=== PATIENT | male | born 1945 | race African-American/Black ===

== ENCOUNTER 2017-12-06 16:11 | Emergency (ER) | payer MEDICARE, MEDICAID ==
[2017-12-06 17:11] LABS: Bilirubin Negative (Negative); Blood, Urine Moderate (Negative); Clarity TURBID (Clear); Glucose, Urine (Dipstick) Negative (Negative); Leukocyte Large (Negative); Nitrite Negative (Negative); Protein, Urine (Dipstick) 30 mg/dL (Neg-Trace); Specific Gravity, Urine 1.009 (1.002-1.036); Urobilinogen 0.2 mg/dL (0.2-1.0)
[2017-12-06 17:13] LABS: Bacteria/HPF 1+ HPF (None Seen); Hyaline Casts/LPF 0-3 HYALINE CAST LPF (0-3 Hyaline); RBC/HPF 0-3 HPF (0-3); Squamous Epithelial None Seen HPF (0-3)
[2017-12-06 17:16] LABS: Yeast-AUWi Flag 679.9 (0-25.0)
[2017-12-06 17:24] LABS: Yeast-All Forms None Seen HPF (None Seen)
== END 2017-12-06 17:49 | disposition home or self-care (01) ==
LOC: ERS 16:11
DX: N39.0 Urinary tract infection, site not specified (principal)
CPT/HCPCS: 36416; 81003; 81015; 87077; 87086; 87186; 99283

== ENCOUNTER 2017-12-12 14:54 | Emergency (ER) | payer MEDICARE, MEDICAID ==
[2017-12-12] MEDS ORDERED: Lidocaine 1% (PF) 30 ML VIAL ONE (16:41)
[2017-12-12] MEDS ORDERED: cefTRIAXone\\ROCEPHIN 500 MG VIAL ONE (16:41)
== END 2017-12-12 17:18 | disposition home or self-care (01) ==
LOC: ERS 14:54
DX: N39.0 Urinary tract infection, site not specified (principal)
CPT/HCPCS: 96372; J0696; J2001

== ENCOUNTER 2018-04-09 14:04 | Inpatient (IN) | payer MEDICARE, MEDICAID ==
[2018-04-09 14:35] LABS: Bilirubin Negative (Negative); Blood, Urine Moderate (Negative); Clarity TURBID (Clear); Glucose, Urine (Dipstick) Negative (Negative); Leukocyte Large (Negative); Nitrite Negative (Negative); Protein, Urine (Dipstick) 30 mg/dL (Neg-Trace); Specific Gravity, Urine 1.011 (1.002-1.036); Urobilinogen 0.2 mg/dL (0.2-1.0)
[2018-04-09 14:37] LABS: Bacteria/HPF 1+ HPF (None Seen); Hyaline Casts/LPF 0-3 HYALINE CAST LPF (0-3 Hyaline); Squamous Epithelial None Seen HPF (0-3)
[2018-04-09 14:46] LABS: Yeast-AUWi Flag 52.6 (0-25.0)
[2018-04-09 14:59] LABS: Yeast-All Forms None Seen HPF (None Seen)
[2018-04-09 15:07] LABS: #Eosinphils 0.4 thou/uL (0.0-0.7); #Monocytes 0.8 thou/uL (0.11-0.59); #Neutrophils 11.4 thou/uL (1.40-6.50); %Basophils 0.1 % (0.0-1.0); %Eosinophils 2.7 % (0.0-10.0); %Lymphocytes 7.1 % (21.0-51.0); %Monocytes 5.9 % (0.0-10.0); %Neutrophils 84.2 % (42.0-75.0); Hemoglobin 11.8 g/dL (14.0-18.0); Mean Corpuscular HGB CONC 32.7 g/dL (32.0-36.0); Mean Corpuscular Hemoglobin 30.1 pg (27.0-31.0); Mean Corpuscular Volume 92.1 fl (80.0-94.0); Mean Platelet Volume 7.4 fL (7.4-10.4); Platelet Count 365 thou/uL (130-400); RBC Distribution Width 14.5 % (11.5-14.5); White Blood Cell (WBC) Count 13.5 thou/uL (4.8-10.8)
[2018-04-09 15:29] LABS: ALT (SGPT) 12 U/L (8-55); AST (SGOT) 13 U/L (5-34); Albumin 4.2 g/dL (3.4-4.8); Alkaline Phosphatase 96 U/L (40-150); Anion Gap 14 mmol/L (10-20); BUN (Urea Nitrogen) 66 mg/dL (8.4-25.7); Bilirubin, Total 0.3 mg/dL (0.2-1.2); Calc. Creatinine Clearance 0 mL/min (70-130); Carbon Dioxide 17 mmol/L (23-31); Chloride 113 mmol/L (98-107); Estimated GFR-MDRD 17; Globulin 3.8 g/dL (2.4-3.5); Glucose 118 mg/dL (80-115); Sodium 139 mmol/L (136-145)
[2018-04-09] MEDS ORDERED: cefTRIAXone\\ROCEPHIN 1 GM VIAL ONE (16:18)
[2018-04-09] MEDS ORDERED: Sodium Chloride 0.9% 100 ML ONE (16:19)
[2018-04-09] MEDS ORDERED: Ondansetron ODT 4 MG TAB ONE (16:33)
[2018-04-09] MEDS ORDERED: Ondansetron ODT 4 MG TAB SL PRN (19:02)
[2018-04-09] MEDS ORDERED: Ondansetron HCl/PF 4 MG/2 ML Vial IVP PRN (19:02)
[2018-04-09] MEDS ORDERED: Acetaminophen 325 MG TAB PO PRN (19:02)
[2018-04-09] MEDS: Sodium Chloride 0.9% 1,000 ML IV SCH (20:52)
[2018-04-09] MEDS ORDERED: cefTRIAXone\\ROCEPHIN 1 GM in Sodium Chloride 0.9% 100 ML IVPB SCH (22:00)
[2018-04-09 23:14] VITALS: BMI 26.6
[2018-04-10] MEDS: Sodium Chloride 0.9% 1,000 ML IV SCH (03:00)
[2018-04-10 04:26] LABS: #Eosinphils 0.8 thou/uL (0.0-0.7); #Lymphocytes 1.3 thou/uL (1.20-3.40); #Monocytes 0.8 thou/uL (0.11-0.59); #Neutrophils 7.2 thou/uL (1.40-6.50); %Basophils 0.1 % (0.0-1.0); %Eosinophils 7.9 % (0.0-10.0); %Lymphocytes 12.5 % (21.0-51.0); %Monocytes 7.5 % (0.0-10.0); Hemoglobin 9.8 g/dL (14.0-18.0); Mean Corpuscular HGB CONC 32.4 g/dL (32.0-36.0); Mean Corpuscular Hemoglobin 29.9 pg (27.0-31.0); Mean Corpuscular Volume 92.2 fL (78.0-98.0); Mean Platelet Volume 7.4 fL (7.4-10.4); Platelet Count 311 thou/uL (130-400); RBC Distribution Width 14.5 % (11.5-14.5); Red Blood Cell (RBC) Count 3.28 mill/uL (4.70-6.10)
[2018-04-10 04:52] LABS: Anion Gap 14 mmol/L (10-20); BUN (Urea Nitrogen) 58 mg/dL (8.4-25.7); Calc. Creatinine Clearance 20 mL/min (70-130); Calcium 7.4 mg/dL (7.8-10.44); Carbon Dioxide 19 mmol/L (23-31); Chloride 113 mmol/L (98-107); Estimated GFR-MDRD 20; Glucose 125 mg/dL (80-115); Potassium 4.8 mmol/L (3.5-5.1); Sodium 141 mmol/L (136-145)
[2018-04-10] MEDS ORDERED: Chloraseptic Spray 180 ml Bottle PO PRN (07:02)
[2018-04-10] MEDS ORDERED: Sodium Chloride 0.65% Nasal 44 ML BOT EA NARE PRN (07:02)
[2018-04-10] MEDS ORDERED: Eucerin (Mineral Oil/Petrolatum,White) 30 gm Jar TOP PRN (07:02)
[2018-04-10] MEDS ORDERED: Ondansetron ODT 4 MG TAB PO PRN (07:02)
[2018-04-10] MEDS ORDERED: HYDROcodone/Acetaminophen 5/325 mg Tablet PO PRN (07:02)
[2018-04-10] MEDS ORDERED: Artificial Tears 18 DROP/0.9 ML EA EYE PRN (07:02)
[2018-04-10] MEDS ORDERED: Loperamide HCl 2 MG CAP PO PRN (07:02)
[2018-04-10] MEDS ORDERED: Labetalol HCl 100 MG/20 ML VIAL SLOW IVP PRN (07:02)
[2018-04-10] MEDS ORDERED: Loratadine 10 MG TAB PO PRN (07:02)
[2018-04-10] MEDS ORDERED: Bisacodyl 10 MG SUPP PR PRN (07:02)
[2018-04-10] MEDS ORDERED: Milk Of Magnesia 30 ML UDCUP PO PRN (07:02)
[2018-04-10] MEDS ORDERED: Diabetic Tussin 200 MG/10 ML UDCUP PO PRN (07:02)
[2018-04-10] MEDS ORDERED: hydrALAZINE 20 MG/ML VIAL SLOW IVP PRN (07:02)
[2018-04-10] MEDS ORDERED: Senokot 8.6 MG TAB PO PRN (07:02)
[2018-04-10] MEDS ORDERED: Zolpidem Tartrate 5 MG TAB PO PRN (07:02)
[2018-04-10] MEDS ORDERED: Mag-Al 1200 mg/1200 mg/30 ML UDCUP PO PRN (07:02)
--- NOTE | 2018-04-10 07:53 | HP ---
PRIMARY CARE DOCTOR: . CODE STATUS: FULL CODE. CHIEF COMPLAINT: Lower abdominal pain. HISTORY OF PRESENT ILLNESS: This is a 72-year-old male patient with past medical history of enlarged prostate, came to the hospital after having lower abdominal pain, reported severe, onset yesterday. The patient had a Becerra catheter removed by cystoscopy and biopsy yesterday. He reported that he had the procedure at [facility]. The patient reported he has been unable to urinate in the same way since the Becerra was removed. He was also reporting associated spasms. He rates the pain at 5/10, gradual onset of symptoms,no clear triggers , only alleviated by medical treatment. REVIEW OF SYSTEMS: Constitutional: No fever, no chills, generalized weakness. Respiratory: No cough, no sputum production, no shortness of breath. Cardiovascular: No chest pain, no palpitations, no shortness of breath. Gastrointestinal: No nausea, no vomiting, no diarrhea, no abdominal pain. Central Nervous System: No dizziness, headache, not feeling lightheaded. Genitourinary: The patient reported burning on urination and inability to urinate. Extremities: No swelling. All other systems reviewed were negative except for the findings mentioned in the HPI. PAST MEDICAL HISTORY: The patient has a history of prostate enlargement. PAST SURGICAL HISTORY: No surgical history. PSYCHIATRIC HISTORY: No previous psychiatric history. SOCIAL HISTORY: The patient is an everyday smoker. No alcohol, no drugs. FAMILY HISTORY: Mother had lung cancer. Father unknown. ALLERGIES: No known drug allergies. HOME MEDICATIONS: The patient takes amlodipine 5 mg daily, ferrous gluconate 325 mg 3 times a day, hydralazine 25 mg orally once a day, Kayexalate 15 g once a day, tamsulosin 0.4 mg once a day, Uribel 118 mg-10 mg-40.8 mg-36 mg-0.12 mg orally. PHYSICAL EXAMINATION: VITAL SIGNS: On presentation, blood pressure 178/ 68, respiratory rate was 16, temperature 98. Pain was 5/10, oxygen saturation 98 on room air. GENERAL APPEARANCE: The patient is alert, oriented, not in acute distress. HEENT: Eyes, normal conjunctivae. Moist oral mucosae. RESPIRATORY: Bilateral air entry, no rales, no wheezing, symmetrical expansion. CARDIOVASCULAR: Normal rate and rhythm. No murmur, no gallop, no edema. ABDOMEN: Soft, normal bowel sounds. MUSCULOSKELETAL: Baseline range of motion and strength. No tenderness. SKIN: Warm and intact. No pallor, no rash. NEUROLOGIC: Baseline sensorium and no evidence of any new focal weakness. Baseline speech, cranial nerves. SENSORY: Intact. PSYCHIATRIC: Mood is normal. No anxiety. LABORATORY DATA: Reviewed. The patient has white count 13.5, hemoglobin 11.8, MCV 92, platelet count 365. Chemistry: Sodium 139, potassium 5.0, chloride 113. Carbon dioxide 17, anion gap 14, BUN 66, creatinine 4.19, GFR 17, glucose 118. Lactic acid 0.8, globulin 3.8. UA was reviewed. The patient has white count with leukocytes, too numerous to count. ASSESSMENT AND PLAN: 1. Urinary tract infection. The patient has positive urine, antibiotics, follow up cultures, adjusting meds as per sensitivity. 2. Urinary retention, needing placement of Becerra, will need urology evaluation for assistance with this case, will f/u with further recommendation. 3. History of enlarged prostate, treatment as above. 4. Deep venous thrombosis prophylaxis. 5. Uncontrolled blood pressure, hypertensive with SBP 178 on presentation, reconcile home meds, we will monitor bp and adjust treatment as needed. MTDD
[2018-04-10 07:57] LABS: Iron 47 ug/dL (65-175); Iron Binding Capacity, Total 235 mcg/dL (261-462); Phosphorus 4.9 mg/dL (2.3-4.7); Uric Acid 7.3 mg/dL (3.5-7.2)
[2018-04-10] MEDS ORDERED: Tamsulosin HCl 0.4 MG CAP PO SCH (09:00)
[2018-04-10] MEDS: Tamsulosin HCl 0.4 MG CAP PO SCH ×2 (09:14→20:10)
[2018-04-10] MEDS: Ferrous Sulfate 325 MG TAB PO SCH (09:14)
[2018-04-10] MEDS: Dextrose 5 %-0.45 % NaCl 1,000 ML IV SCH ×3 (09:15→20:11)
[2018-04-10] MEDS: Famotidine 20 MG TAB PO SCH (09:17)
--- NOTE | 2018-04-10 10:06 | ULT ---
BILATERAL RENAL ULTRASOUND: Date: 04/10/18 HISTORY: Acute renal insufficiency. FINDINGS: Multiple longitudinal and transverse images of the kidneys and bladder obtained using multihertz curv ilinear transducer. Real-time and color flow images demonstrate both kidneys to be of normal contour, axis, and size. Both kidneys are somewhat small. Right kidney measures 8.7 cm and left kidney measur es 8.4 cm from pole to pole. No evidence of hydronephrosis seen. Small cortical cyst is seen in the u pper pole of the right kidney measuring 1.1 x 0.9 x 0.8 cm. No other renal masses or lesions seen. Indwelling Becerra catheter is seen. Bladder wall is thickened. IMPRESSION: Abnormally thickened bladder wall. Otherwise unremarkable renal ultrasound. POS: LILIA
--- NOTE | 2018-04-10 10:10 | PDOC.PN ---
- Subjective Encounter Start Date: 04/10/18 Encounter Start Time: 08:20 -: old records requested/rev Patient seen and examined for acute/chronic kidney failure. No new complaints. No overnight events - Objective Resuscitation Status: Resuscitation Status FULL:Full Resuscitation MAR Reviewed: Yes Vital Signs & Weight: Vital Signs (12 hours) Temp Pulse Resp BP Pulse Ox 04/10/18 07:41 98.4 F 54 L 16 124/66 97 Weight Weight 169 lb 12.095 oz I&O: 04/09/18 04/10/18 04/11/18 06:59 06:59 06:59 Intake Total 1500 Output Total 1400 Balance 100 Result Diagrams: 04/10/18 03:56 04/10/18 03:56 Radiology Reviewed by me: Yes (renal US- thick bladder wall) Phys Exam - Physical Examination Constitutional: NAD HEENT: PERRLA, moist MMs, sclera anicteric Neck: no JVD, supple Respiratory: no wheezing, no rales, no rhonchi Cardiovascular: RRR, no significant murmur, no rub Gastrointestinal: soft, non-tender, no distention, positive bowel sounds Musculoskeletal: no edema, pulses present Neurological: non-focal, normal sensation, moves all 4 limbs Lymphatic: no nodes Psychiatric: normal affect, A&O x 3 Skin: no rash, normal turgor Dx/Plan (1) Acute kidney failure Status: Acute (2) Metabolic acidosis Code(s): E87.2 - ACIDOSIS Status: Acute (3) UTI (urinary tract infection) Status: Acute (4) Anemia, normocytic normochromic Code(s): D64.9 - ANEMIA, UNSPECIFIED Status: Chronic (5) BPH (benign prostatic hyperplasia) Code(s): N40.0 - BENIGN PROSTATIC HYPERPLASIA WITHOUT LOWER URINRY TRACT SYMP Status: Chronic - Plan cont current plan of care, continue antibiotics * checked phos, uric acid, anemia work up, renal US, urine sodium, creatinine and protein, SPAP * will consult nephrology and urology * has cervantes catheter, will monitor urine output * avoid nephrotoxin * monitor renal function * follow culture * add allopurinol * add Tums * add Vitamin D3 * medication reviewed as below * symptomatic treatment. * continue rocephin Review of Systems - Review of Systems Eyes: negative: Pain, Vision Change, Conjunctivae Inflammation, Eyelid Inflammation, Redness, Other ENT: negative: Ear Pain, Ear Discharge, Nose Pain, Nose Discharge, Nose Congestion, Mouth Pain, Mouth Swelling, Throat Pain, Throat Swelling, Other Respiratory: negative: Cough, Dry, Shortness of Breath, Hemoptysis, SOB with Excertion, Pleuritic Pain, Sputum, Wheezing Cardiovascular: negative: chest pain, palpitations, orthopnea, paroxysmal nocturnal dyspnea, edema, light headedness, other Gastrointestinal: negative: Nausea, Vomiting, Abdominal Pain, Diarrhea, Constipation, Melena, Hematochezia, Other Genitourinary: negative: Dysuria, Frequency, Incontinence, Hematuria, Retention , Other Musculoskeletal: negative: Neck Pain, Shoulder Pain, Arm Pain, Back Pain, Hand Pain, Leg Pain, Foot Pain, Other Skin: negative: Rash, Lesions, Gonzalez, Bruising, Other - Medications/Allergies Allergies/Adverse Reactions: Allergies Allergy/AdvReac Type Severity Reaction Status Date / Time No Known Drug Allergies Allergy Verified 04/09/18 23:54 Medications: Current Medications Acetaminophen (Tylenol) 650 mg PO Q4H PRN PRN Reason: Headache/Fever or Pain Stop: 04/13/18 04:00 Hydrocodone Bitart/Acetaminophen ([place] 5/325) 1 tab PO Q4H PRN PRN Reason: Moderate Pain (4-6) Al Hydroxide/Mg Hydroxide (Maalox) 15 ml PO Q4H PRN PRN Reason: Heartburn or Indigestion Artificial Tears (Tears Naturale) 0 drop EA EYE PRN PRN PRN Reason: Dry Eyes Bisacodyl (Dulcolax) 10 mg [place] DAILYPRN PRN PRN Reason: Constipation Famotidine (Pepcid) 20 mg PO DAILY [facility] Last Admin: 04/10/18 09:17 Dose: 20 mg Ferrous Sulfate (Feosol) 325 mg PO QAM[facility] Last Admin: 04/10/18 09:14 Dose: 325 mg Guaifenesin (Robitussin Sf) 200 mg PO Q4H PRN PRN Reason: Cough Hydralazine HCl (Apresoline) 10 mg SLOW IVP Q4H PRN PRN Reason: Systolic BP > 180 Ceftriaxone Sodium 1 gm/ (Sodium Chloride) 100 mls @ 200 mls/hr IVPB Q24HR [facility] Dextrose/Sodium Chloride (D5 1/2 Ns) 1,000 mls @ 100 mls/hr IV .Q10H [facility] Last Admin: 04/10/18 09:15 Dose: 1,000 mls Labetalol HCl (Normodyne) 20 mg SLOW IVP Q4H PRN PRN Reason: Systolic BP > 180 Loperamide HCl (Imodium) 2 mg PO PRN PRN PRN Reason: Diarrhea/Loose Stools Loratadine (Claritin) 10 mg PO DAILYPRN PRN PRN Reason: Sinus Symptoms Magnesium Hydroxide (Milk Of Magnesium) 30 ml PO DAILYPRN PRN PRN Reason: Constipation Mineral Oil/White Petrolatum (Eucerin Cream) 0 gm TOP BIDPRN PRN PRN Reason: Dry Skin Ondansetron HCl (Zofran) 4 mg IVP Q6H PRN PRN Reason: Nausea/Vomiting Stop: 04/13/18 04:00 Ondansetron HCl (Zofran Odt) 4 mg PO Q6H PRN PRN Reason: Nausea/Vomiting Phenol (Chloraseptic [place] 180 Ml Bot) 0 ml PO PRN PRN PRN Reason: Sore Throat Senna (Senokot) 2 tab PO HSPRN PRN PRN Reason: Constipation Sodium Chloride (Flush - Normal Saline) 10 ml IVF Q12HR [facility] Last Admin: 04/10/18 09:15 Dose: Not Given Sodium Chloride (Flush - Normal Saline) 10 ml IVF PRN PRN PRN Reason: Saline Flush Sodium Chloride ([place] Nasal [place] 0.65%) 0 ml EA NARE QIDPRN PRN PRN Reason: Nasal Congestion Tamsulosin HCl (Flomax) 0.4 mg PO BID [facility] Last Admin: 04/10/18 09:14 Dose: 0.4 mg Zolpidem Tartrate (Ambien) 5 mg PO HSPRN PRN PRN Reason: Insomnia
[2018-04-10 10:59] LABS: Creatinine, Urine 51.86 mg/dL (63-166)
[2018-04-10] MEDS: cefTRIAXone\\ROCEPHIN 1 GM in Sodium Chloride 0.9% 100 ML IVPB SCH (17:01)
[2018-04-10] MEDS: Calcium Carbonate 500 MG ChewTAB PO SCH (20:11)
--- NOTE | 2018-04-11 01:02 | CON ---
DATE OF CONSULTATION: 04/10/2018 CONSULTING PHYSICIAN: Daron Walters MD REQUESTING PHYSICIAN: Mónica Taylor MD REASON FOR CONSULTATION: Acute on chronic kidney disease. IMPRESSION: Acute on chronic kidney disease. This is likely in the context of obstructive uropathy. PLAN: 1. Renally dose all medications for low GFR and avoid potential nephrotoxic agents. 2. Becerra catheterization with the plan to have Urology followup with this patient. 3. Monitor for post-obstructive diuresis and attendant electrolyte derangements. 4. In terms of gentle rehydration of this patient, we will recommend half normal saline. HISTORY OF PRESENT ILLNESS: A 72-year-old gentleman who presented here with lower abdominal pain. T he patient has not been able to urinate since the Becerra catheter was removed. The patient noted with elevated creatinine on presentation and has not been able to make any urine. As a result of these f indings, decision has been taken to involve Renal in the management of this case. PAST MEDICAL HISTORY: Significant for chronic kidney disease, likely stage 3; BPH; tobacco use; hype rtension. FAMILY HISTORY: No family history of kidney disease. SOCIAL HISTORY: Significant for tobacco use. No alcohol, no illicit drug use. ALLERGIES: No known drug allergy. MEDICATIONS: Have been reviewed and documented on [employer]. PHYSICAL EXAMINATION: GENERAL: The patient was found not to be in any obvious distress, noted with the following vital sig ns. VITAL SIGNS: Afebrile with temperature 98.4, pulse 54, respiratory rate of 16, O2 sat of 97% with bl ood pressure 124/66. HEENT: Unremarkable. Moist oral mucosa. No conjunctival injection or icterus. CARDIOVASCULAR SYSTEM: First and second heart sounds were heard. RESPIRATORY SYSTEM: Clear to auscultation. DIGESTIVE SYSTEM: Revealed a benign abdomen with positive bowel sounds. EXTREMITIES: No peripheral edema. SKIN: No new gross rash. LYMPHATICS: No peripheral lymphadenopathy. SUMMARY: A 72-year-old gentleman who presented here unable to urinate with elevated creatinine, like ly responsible for the acute on chronic kidney disease. Thank you for this consultation. We will follow with you.
--- NOTE | 2018-04-11 03:09 | CON ---
DATE OF CONSULTATION: 04/10/2018 REASON FOR CONSULTATION: Urinary retention. HISTORY OF PRESENT ILLNESS: Mr. Bermudez is a 72-year-old gentleman who has been in urinary retention f or several weeks. He was seen by a local urologist near [place] where he lives. He then went for ano ther opinion in [place]. In [place], he had a cystoscopy with biopsy of a small nodule in his bladde r and catheter removal on 04/08/2018. He then presented to [facility] on 03/22, complaining of difficulty voiding. He states he was voiding very frequently in small amounts . When he was admitted to the hospital, he was noted to have an elevated creatinine and the catheter was placed for over 400 mL in his bladder. He states that until recently has never had any medical problems. He was treated for overactive blad tri for a long period of time until it was diagnosed with overflow as a source of his urinary frequen cy and a Becerra catheter was placed at that time and has been in place since then. PAST MEDICAL HISTORY: Asthma as a child. PAST SURGICAL HISTORY: None. CHRONIC MEDICATIONS: Flomax recently started. ALLERGIES: No known drug allergies. SOCIAL HISTORY: He smokes cigarettes. Denies excessive alcohol or drug use. He lives with his [facility]. He has worked long-term in the food industry. ADDITIONAL MEDICATIONS: Hydralazine 25 mg daily, amlodipine 5 mg daily along with the Flomax. REVIEW OF SYSTEMS: Respiratory: He denies shortness of breath. Cardiovascular: Denies chest pain or palpitations. Gastrointestinal: Denies chronic constipation or diarrhea. Neurologic: No eviden ce of focal weakness. Skin: Warm and intact. No rashes. PHYSICAL EXAMINATION: GENERAL: He is awake, alert, in no distress. He appears in good nutritional status. VITAL SIGNS: Blood pressure 138/82, pulse 82, respiratory rate 16. HEENT: Normocephalic, atraumatic. NECK: Supple, without masses. CHEST: Clear to auscultation. CARDIOVASCULAR: No murmurs auscultated. ABDOMEN: Soft, nontender, no palpable mass. Liver and spleen are palpable. No abdominal tenderness noted. LABORATORY DATA: Creatinine on admission 4.19. IMAGING: Renal ultrasound, no hydronephrosis or evidence of stones. IMPRESSION: Mr. Bermudez is a 72-year-old gentleman who is receiving his urologic care in [place]. Mos t recently, he had his catheter removed after a bladder biopsy. He then presented here for urinary r etention. He was in retention for at least a couple of weeks prior to this admission. He is anticip ating returning to his urologist in [place] next week for his pathology results and scheduling a raymond surethral surgery to deem him catheter free. In the interim, the patient should remain on antibiotic therapy with culture specific antibiotics based on his results. RECOMMENDATIONS: 1. Culture specific antibiotic therapy. 2. The Becerra catheter in at the time of discharge. 3. Followup information in our office has been given to the patient if he opts to stay locally for h is treatment.
[2018-04-11 05:32] LABS: #Basophils 0.1 thou/uL (0.0-0.2); #Eosinphils 0.9 thou/uL (0.0-0.7); #Lymphocytes 1.8 thou/uL (1.20-3.40); #Monocytes 0.6 thou/uL (0.11-0.59); #Neutrophils 5.3 thou/uL (1.40-6.50); %Basophils 0.6 % (0.0-1.0); %Eosinophils 10.1 % (0.0-10.0); %Lymphocytes 20.6 % (21.0-51.0); %Monocytes 7.3 % (0.0-10.0); %Neutrophils 61.4 % (42.0-75.0); Albumin 3.3 g/dL (3.4-4.8); Anion Gap 12 mmol/L (10-20); BUN (Urea Nitrogen) 51 mg/dL (8.4-25.7); BUN/Creatinine Ratio 13.67; Calc. Creatinine Clearance 20 mL/min (70-130); Calcium 7.3 mg/dL (7.8-10.44); Carbon Dioxide 18 mmol/L (23-31); Chloride 112 mmol/L (98-107); Estimated GFR-MDRD 20; Glucose 105 mg/dL (80-115); Hemoglobin 9.4 g/dL (14.0-18.0); Mean Corpuscular HGB CONC 31.7 g/dL (32.0-36.0); Mean Corpuscular Hemoglobin 29.8 pg (27.0-31.0); Mean Platelet Volume 8.2 fL (7.4-10.4); Phosphorus 4.4 mg/dL (2.3-4.7); Platelet Count 286 thou/uL (130-400); RBC Distribution Width 14.4 % (11.5-14.5); Red Blood Cell (RBC) Count 3.16 mill/uL (4.70-6.10); Sodium 137 mmol/L (136-145); White Blood Cell (WBC) Count 8.7 thou/uL (4.8-10.8)
[2018-04-11] MEDS: Tamsulosin HCl 0.4 MG CAP PO SCH ×2 (08:54→20:18)
[2018-04-11] MEDS: Calcium Carbonate 500 MG ChewTAB PO SCH ×2 (08:54→20:19)
[2018-04-11] MEDS: Famotidine 20 MG TAB PO SCH (08:54)
[2018-04-11] MEDS: Ferrous Sulfate 325 MG TAB PO SCH (08:55)
[2018-04-11] MEDS: Allopurinol 100 MG TAB PO SCH (08:55)
[2018-04-11] MEDS: Sodium Bicarbonate Tab 325 MG TAB PO SCH ×2 (08:55→20:18)
--- NOTE | 2018-04-11 11:27 | PDOC.PN ---
- Subjective Encounter Start Date: 04/11/18 Encounter Start Time: 08:30 Patient seen and examined for acute kidney failure. No new complaints. No overnight events - Objective Resuscitation Status: Resuscitation Status FULL:Full Resuscitation MAR Reviewed: Yes Vital Signs & Weight: Vital Signs (12 hours) Temp Pulse Resp BP Pulse Ox 04/11/18 08:52 97.7 F 58 L 18 98 04/11/18 07:01 97.7 F 58 L 18 133/64 98 Weight Weight 169 lb 12.095 oz I&O: 04/10/18 04/11/18 04/12/18 06:59 06:59 06:59 Intake Total 1500 1440 Output Total 1400 3200 Balance 100 -1760 Result Diagrams: 04/11/18 04:03 04/11/18 04:03 Phys Exam - Physical Examination Constitutional: NAD HEENT: PERRLA, moist MMs, sclera anicteric Neck: no JVD, supple Respiratory: no wheezing, no rales, no rhonchi Cardiovascular: RRR, no significant murmur, no rub Gastrointestinal: soft, non-tender, no distention, positive bowel sounds Musculoskeletal: no edema, pulses present Neurological: non-focal, normal sensation, moves all 4 limbs Lymphatic: no nodes Psychiatric: normal affect, A&O x 3 Skin: no rash, normal turgor Dx/Plan (1) Metabolic acidosis Code(s): E87.2 - ACIDOSIS Status: Acute (2) UTI (urinary tract infection) Status: Acute (3) Anemia, normocytic normochromic Code(s): D64.9 - ANEMIA, UNSPECIFIED Status: Chronic (4) BPH (benign prostatic hyperplasia) Code(s): N40.0 - BENIGN PROSTATIC HYPERPLASIA WITHOUT LOWER URINRY TRACT SYMP Status: Chronic (5) Acute on chronic kidney failure Code(s): N17.9 - ACUTE KIDNEY FAILURE, UNSPECIFIED; N18.9 - CHRONIC KIDNEY DISEASE, UNSPECIFIED Status: Acute Qualifiers: Chronic kidney disease stage: unspecified stage (6) Hyperphosphatemia Code(s): E83.39 - OTHER DISORDERS OF PHOSPHORUS METABOLISM Status: Acute Comment: on Tums (7) Hyperuricemia Code(s): E79.0 - HYPERURICEMIA W/O SIGNS OF INFLAM ARTHRIT AND TOPHACEOUS DIS Status: Acute Comment: on Allopurinol (8) Urinary retention due to benign prostatic hyperplasia Code(s): N40.1 - BENIGN PROSTATIC HYPERPLASIA WITH LOWER URINARY TRACT SYMP; R33.8 - OTHER RETENTION OF URINE Status: Acute Comment: with cervantes catheter (9) Vitamin D deficiency Code(s): E55.9 - VITAMIN D DEFICIENCY, UNSPECIFIED Status: Acute Comment: on vitamin D3 - Plan cont current plan of care, continue antibiotics * today DC IVF * add sodium bicarbonate 650 mg po bid. * medication reviewed as below * symptomatic treatment * urology recommendation noted * nephrology recommendation noted * follow up on urine culture * continue rocephin and add cipro 200 mg IV bid * continue flomax Review of Systems - Review of Systems Eyes: negative: Pain, Vision Change, Conjunctivae Inflammation, Eyelid Inflammation, Redness, Other ENT: negative: Ear Pain, Ear Discharge, Nose Pain, Nose Discharge, Nose Congestion, Mouth Pain, Mouth Swelling, Throat Pain, Throat Swelling, Other Respiratory: negative: Cough, Dry, Shortness of Breath, Hemoptysis, SOB with Excertion, Pleuritic Pain, Sputum, Wheezing Cardiovascular: negative: chest pain, palpitations, orthopnea, paroxysmal nocturnal dyspnea, edema, light headedness, other Gastrointestinal: negative: Nausea, Vomiting, Abdominal Pain, Diarrhea, Constipation, Melena, Hematochezia, Other Genitourinary: negative: Dysuria, Frequency, Incontinence, Hematuria, Retention , Other Musculoskeletal: negative: Neck Pain, Shoulder Pain, Arm Pain, Back Pain, Hand Pain, Leg Pain, Foot Pain, Other Skin: negative: Rash, Lesions, Gonzalez, Bruising, Other - Medications/Allergies Allergies/Adverse Reactions: Allergies Allergy/AdvReac Type Severity Reaction Status Date / Time No Known Drug Allergies Allergy Verified 04/09/18 23:54 Medications: Current Medications Acetaminophen (Tylenol) 650 mg PO Q4H PRN PRN Reason: Headache/Fever or Pain Stop: 04/13/18 04:00 Hydrocodone Bitart/Acetaminophen ([place] 5/325) 1 tab PO Q4H PRN PRN Reason: Moderate Pain (4-6) Last Admin: 04/11/18 09:12 Dose: 1 tab Al Hydroxide/Mg Hydroxide (Maalox) 15 ml PO Q4H PRN PRN Reason: Heartburn or Indigestion Allopurinol (Zyloprim) 100 mg PO DAILY [facility] Last Admin: 04/11/18 08:55 Dose: 100 mg Artificial Tears (Tears Naturale) 0 drop EA EYE PRN PRN PRN Reason: Dry Eyes Bisacodyl (Dulcolax) 10 mg [place] DAILYPRN PRN PRN Reason: Constipation Calcium Carbonate (Tums) 1,000 mg PO BID [facility] Last Admin: 04/11/18 08:54 Dose: 1,000 mg Cholecalciferol (Vitamin D3) 1,000 units PO DAILY [facility] Last Admin: 04/11/18 08:55 Dose: 1,000 units Famotidine (Pepcid) 20 mg PO DAILY [facility] Last Admin: 04/11/18 08:54 Dose: 20 mg Ferrous Sulfate (Feosol) 325 mg PO QA[facility] Last Admin: 04/11/18 08:55 Dose: 325 mg Guaifenesin (Robitussin Sf) 200 mg PO Q4H PRN PRN Reason: Cough Hydralazine HCl (Apresoline) 10 mg SLOW IVP Q4H PRN PRN Reason: Systolic BP > 180 Ceftriaxone Sodium 1 gm/ (Sodium Chloride) 100 mls @ 200 mls/hr IVPB Q24HR [facility] Last Admin: 04/10/18 17:01 Dose: 100 mls Labetalol HCl (Normodyne) 20 mg SLOW IVP Q4H PRN PRN Reason: Systolic BP > 180 Loperamide HCl (Imodium) 2 mg PO PRN PRN PRN Reason: Diarrhea/Loose Stools Loratadine (Claritin) 10 mg PO DAILYPRN PRN PRN Reason: Sinus Symptoms Magnesium Hydroxide (Milk Of Magnesium) 30 ml PO DAILYPRN PRN PRN Reason: Constipation Mineral Oil/White Petrolatum (Eucerin Cream) 0 gm TOP BIDPRN PRN PRN Reason: Dry Skin Ondansetron HCl (Zofran) 4 mg IVP Q6H PRN PRN Reason: Nausea/Vomiting Stop: 04/13/18 04:00 Ondansetron HCl (Zofran Odt) 4 mg PO Q6H PRN PRN Reason: Nausea/Vomiting Phenol (Chloraseptic [place] 180 Ml Bot) 0 ml PO PRN PRN PRN Reason: Sore Throat Senna (Senokot) 2 tab PO HSPRN PRN PRN Reason: Constipation Sodium Bicarbonate (Bicarbonate, Sodium) 650 mg PO BID [facility] Last Admin: 04/11/18 08:55 Dose: 650 mg Sodium Chloride (Flush - Normal Saline) 10 ml IVF Q12HR [facility] Last Admin: 04/11/18 08:55 Dose: 10 ml Sodium Chloride (Flush - Normal Saline) 10 ml IVF PRN PRN PRN Reason: Saline Flush Sodium Chloride ([place] Nasal [place] 0.65%) 0 ml EA NARE QIDPRN PRN PRN Reason: Nasal Congestion Tamsulosin HCl (Flomax) 0.4 mg PO BID [facility] Last Admin: 04/11/18 08:54 Dose: 0.4 mg Zolpidem Tartrate (Ambien) 5 mg PO HSPRN PRN PRN Reason: Insomnia
--- NOTE | 2018-04-11 14:15 | PRG ---
DATE OF SERVICE: 04/11/2018 The patient was seen and examined, seems to be doing much better. PHYSICAL EXAMINATION: VITAL SIGNS: Afebrile with temperature 97.7, pulse is 58, respiratory rate 18, O2 saturation 98% wit h blood pressure 133/64. HEENT: Unremarkable. CARDIOVASCULAR: First and second heart sounds were heard. RESPIRATORY: Clear to auscultation. DIGESTIVE: Revealed a benign abdomen with positive bowel sounds. EXTREMITIES: No peripheral edema. SKIN: No new gross rash. LYMPHATICS: No peripheral lymphadenopathy. LABORATORY INVESTIGATIONS: Showed a bicarbonate of 18, creatinine 3.73, BUN of 51. Hemoglobin of 9. 4. IMPRESSION: 1. Acute on chronic kidney disease with marginal improvement. 2. Metabolic acidosis. 3. Advanced chronic kidney disease stage 4, most likely. PLAN: 1. Continue renal supportive measures. 2. Bicarbonate supplementation. 3. Renally dose all medications and avoid potentially nephrotoxic agents. 4. Further management to be dependent on the clinical course. 5. The patient needs outpatient Nephrology followup status post discharge.
[2018-04-11] MEDS: cefTRIAXone\\ROCEPHIN 1 GM in Sodium Chloride 0.9% 100 ML IVPB SCH (16:39)
[2018-04-11] MEDS: Ciprofloxacin Lactate/D5W 200 MG in Premix Bag 1 BAG IVPB SCH (20:20)
[2018-04-12 04:41] LABS: #Lymphocytes 1.5 thou/uL (1.20-3.40); #Monocytes 0.7 thou/uL (0.11-0.59); #Neutrophils 5.8 thou/uL (1.40-6.50); %Basophils 0.2 % (0.0-1.0); %Eosinophils 11.1 % (0.0-10.0); %Lymphocytes 16.4 % (21.0-51.0); %Monocytes 7.8 % (0.0-10.0); %Neutrophils 64.4 % (42.0-75.0); Hemoglobin 9.7 g/dL (14.0-18.0); Mean Corpuscular Hemoglobin 30.3 pg (27.0-31.0); Mean Corpuscular Volume 91.7 fL (78.0-98.0); Mean Platelet Volume 7.6 fL (7.4-10.4); Platelet Count 294 thou/uL (130-400); RBC Distribution Width 14.5 % (11.5-14.5); Red Blood Cell (RBC) Count 3.21 mill/uL (4.70-6.10); White Blood Cell (WBC) Count 8.9 thou/uL (4.8-10.8)
[2018-04-12 05:10] LABS: Albumin 3.3 g/dL (3.4-4.8); Anion Gap 15 mmol/L (10-20); BUN (Urea Nitrogen) 47 mg/dL (8.4-25.7); BUN/Creatinine Ratio 12.98; Calc. Creatinine Clearance 21 mL/min (70-130); Carbon Dioxide 19 mmol/L (23-31); Chloride 110 mmol/L (98-107); Estimated GFR-MDRD 20; Glucose 98 mg/dL (80-115); Phosphorus 3.6 mg/dL (2.3-4.7); Sodium 139 mmol/L (136-145)
[2018-04-12] MEDS: Ferrous Sulfate 325 MG TAB PO SCH (09:01)
[2018-04-12] MEDS: Ciprofloxacin Lactate/D5W 200 MG in Premix Bag 1 BAG IVPB SCH ×2 (09:02→20:55)
[2018-04-12] MEDS: Allopurinol 100 MG TAB PO SCH (09:02)
[2018-04-12] MEDS: Tamsulosin HCl 0.4 MG CAP PO SCH ×2 (09:02→20:55)
[2018-04-12] MEDS: Famotidine 20 MG TAB PO SCH (09:02)
[2018-04-12] MEDS: Calcium Carbonate 500 MG ChewTAB PO SCH ×2 (09:03→20:54)
[2018-04-12] MEDS: Sodium Bicarbonate Tab 325 MG TAB PO SCH ×2 (09:03→20:55)
--- NOTE | 2018-04-12 11:15 | PDOC.PN ---
- Subjective Encounter Start Date: 04/12/18 Encounter Start Time: 08:45 Patient seen and examined for renal failure. No new complaints. No overnight events - Objective Resuscitation Status: Resuscitation Status FULL:Full Resuscitation MAR Reviewed: Yes Vital Signs & Weight: Vital Signs (12 hours) Temp Pulse Resp BP Pulse Ox 04/12/18 08:00 97.4 F L 54 L 18 04/12/18 07:09 97.4 F L 54 L 18 134/66 98 Weight Weight 169 lb 12.095 oz I&O: 04/11/18 04/12/18 04/13/18 06:59 06:59 06:59 Intake Total 1440 1550 Output Total 3200 2150 Balance -1760 -600 Result Diagrams: 04/12/18 04:05 04/12/18 04:05 EKG Reviewed by me: Yes (nsr) Phys Exam - Physical Examination Constitutional: NAD HEENT: PERRLA, moist MMs, sclera anicteric Neck: no JVD, supple Respiratory: no wheezing, no rales, no rhonchi Cardiovascular: RRR, no significant murmur, no rub Gastrointestinal: soft, non-tender, no distention, positive bowel sounds cervantes+ Musculoskeletal: no edema, pulses present Neurological: non-focal, normal sensation Lymphatic: no nodes Psychiatric: normal affect, A&O x 3 Skin: no rash, normal turgor Dx/Plan (1) Metabolic acidosis Code(s): E87.2 - ACIDOSIS Status: Acute (2) UTI (urinary tract infection) Status: Acute (3) Anemia, normocytic normochromic Code(s): D64.9 - ANEMIA, UNSPECIFIED Status: Chronic (4) BPH (benign prostatic hyperplasia) Code(s): N40.0 - BENIGN PROSTATIC HYPERPLASIA WITHOUT LOWER URINRY TRACT SYMP Status: Chronic (5) Acute on chronic kidney failure Code(s): N17.9 - ACUTE KIDNEY FAILURE, UNSPECIFIED; N18.9 - CHRONIC KIDNEY DISEASE, UNSPECIFIED Status: Acute Qualifiers: Chronic kidney disease stage: unspecified stage (6) Hyperphosphatemia Code(s): E83.39 - OTHER DISORDERS OF PHOSPHORUS METABOLISM Status: Acute Comment: on Tums (7) Hyperuricemia Code(s): E79.0 - HYPERURICEMIA W/O SIGNS OF INFLAM ARTHRIT AND TOPHACEOUS DIS Status: Acute Comment: on Allopurinol (8) Urinary retention due to benign prostatic hyperplasia Code(s): N40.1 - BENIGN PROSTATIC HYPERPLASIA WITH LOWER URINARY TRACT SYMP; R33.8 - OTHER RETENTION OF URINE Status: Acute Comment: with cervantes catheter (9) Vitamin D deficiency Code(s): E55.9 - VITAMIN D DEFICIENCY, UNSPECIFIED Status: Acute Comment: on vitamin D3 - Plan cont current plan of care, continue antibiotics * await C & S result for pseudomonas in urine * overall stable with current treatment * medication reviewed as below * symptomatic treatment * monitor renal function. Review of Systems - Review of Systems Eyes: negative: Pain, Vision Change, Conjunctivae Inflammation, Eyelid Inflammation, Redness, Other ENT: negative: Ear Pain, Ear Discharge, Nose Pain, Nose Discharge, Nose Congestion, Mouth Pain, Mouth Swelling, Throat Pain, Throat Swelling, Other Respiratory: negative: Cough, Dry, Shortness of Breath, Hemoptysis, SOB with Excertion, Pleuritic Pain, Sputum, Wheezing Cardiovascular: negative: chest pain, palpitations, orthopnea, paroxysmal nocturnal dyspnea, edema, light headedness, other Gastrointestinal: negative: Nausea, Vomiting, Abdominal Pain, Diarrhea, Constipation, Melena, Hematochezia, Other Genitourinary: negative: Dysuria, Frequency, Incontinence, Hematuria, Retention , Other Musculoskeletal: negative: Neck Pain, Shoulder Pain, Arm Pain, Back Pain, Hand Pain, Leg Pain, Foot Pain, Other - Medications/Allergies Allergies/Adverse Reactions: Allergies Allergy/AdvReac Type Severity Reaction Status Date / Time No Known Drug Allergies Allergy Verified 04/09/18 23:54 Medications: Current Medications Acetaminophen (Tylenol) 650 mg PO Q4H PRN PRN Reason: Headache/Fever or Pain Stop: 04/13/18 04:00 Hydrocodone Bitart/Acetaminophen ([place] 5/325) 1 tab PO Q4H PRN PRN Reason: Moderate Pain (4-6) Last Admin: 04/11/18 09:12 Dose: 1 tab Al Hydroxide/Mg Hydroxide (Maalox) 15 ml PO Q4H PRN PRN Reason: Heartburn or Indigestion Allopurinol (Zyloprim) 100 mg PO DAILY [facility] Last Admin: 04/12/18 09:02 Dose: 100 mg Artificial Tears (Tears Naturale) 0 drop EA EYE PRN PRN PRN Reason: Dry Eyes Bisacodyl (Dulcolax) 10 mg [place] DAILYPRN PRN PRN Reason: Constipation Calcium Carbonate (Tums) 1,000 mg PO BID [facility] Last Admin: 04/12/18 09:03 Dose: Not Given Cholecalciferol (Vitamin D3) 1,000 units PO DAILY [facility] Last Admin: 04/12/18 09:02 Dose: 1,000 units Famotidine (Pepcid) 20 mg PO DAILY [facility] Last Admin: 04/12/18 09:02 Dose: Not Given Ferrous Sulfate (Feosol) 325 mg PO QA-[facility] Last Admin: 04/12/18 09:01 Dose: 325 mg Guaifenesin (Robitussin Sf) 200 mg PO Q4H PRN PRN Reason: Cough Hydralazine HCl (Apresoline) 10 mg SLOW IVP Q4H PRN PRN Reason: Systolic BP > 180 Ceftriaxone Sodium 1 gm/ (Sodium Chloride) 100 mls @ 200 mls/hr IVPB Q24HR [facility] Last Admin: 04/11/18 16:39 Dose: 100 mls Ciprofloxacin/Dextrose 200 mg/ (Device) 100 mls @ 100 mls/hr IVPB Q12HR [facility] Last Admin: 04/12/18 09:02 Dose: 100 mls Labetalol HCl (Normodyne) 20 mg SLOW IVP Q4H PRN PRN Reason: Systolic BP > 180 Loperamide HCl (Imodium) 2 mg PO PRN PRN PRN Reason: Diarrhea/Loose Stools Loratadine (Claritin) 10 mg PO DAILYPRN PRN PRN Reason: Sinus Symptoms Magnesium Hydroxide (Milk Of Magnesium) 30 ml PO DAILYPRN PRN PRN Reason: Constipation Mineral Oil/White Petrolatum (Eucerin Cream) 0 gm TOP BIDPRN PRN PRN Reason: Dry Skin Ondansetron HCl (Zofran) 4 mg IVP Q6H PRN PRN Reason: Nausea/Vomiting Stop: 04/13/18 04:00 Ondansetron HCl (Zofran Odt) 4 mg PO Q6H PRN PRN Reason: Nausea/Vomiting Phenol (Chloraseptic [place] 180 Ml Bot) 0 ml PO PRN PRN PRN Reason: Sore Throat Senna (Senokot) 2 tab PO HSPRN PRN PRN Reason: Constipation Sodium Bicarbonate (Bicarbonate, Sodium) 650 mg PO BID [facility] Last Admin: 04/12/18 09:03 Dose: Not Given Sodium Chloride (Flush - Normal Saline) 10 ml IVF Q12HR [facility] Last Admin: 04/12/18 09:03 Dose: 10 ml Sodium Chloride (Flush - Normal Saline) 10 ml IVF PRN PRN PRN Reason: Saline Flush Last Admin: 04/11/18 16:40 Dose: 10 ml Sodium Chloride (Coin Nasal [place] 0.65%) 0 ml EA NARE QIDPRN PRN PRN Reason: Nasal Congestion Tamsulosin HCl (Flomax) 0.4 mg PO BID [facility] Last Admin: 04/12/18 09:02 Dose: 0.4 mg Zolpidem Tartrate (Ambien) 5 mg PO HSPRN PRN PRN Reason: Insomnia
[2018-04-12 14:21] LABS: Albumin 3.1 g/dL (2.9-4.4); Alpha 1 0.2 g/dL (0.0-0.4); Alpha 2 0.6 g/dL (0.4-1.0); Beta 0.8 g/dL (0.7-1.3); Gamma 1.4 g/dL (0.4-1.8); M-Spike Not Observed g/dL (Not Observed)
[2018-04-12] MEDS: cefTRIAXone\\ROCEPHIN 1 GM in Sodium Chloride 0.9% 100 ML IVPB SCH (16:41)
--- NOTE | 2018-04-13 01:07 | PRG ---
DATE OF SERVICE: 04/12/2018 SUBJECTIVE: Patient seen and examined and noted with the following vital signs. OBJECTIVE: VITAL SIGNS: Afebrile with temperature 97.9, pulse 63, respiratory . HEENT: Unremarkable with moist oral mucosa. NECK: Supple, no conjunctival injection or icterus. CARDIOVASCULAR: First and second heart sounds were heard. RESPIRATORY: Clear to auscultation. DIGESTIVE: Revealed a benign abdomen with positive bowel sounds. EXTREMITIES: No peripheral edema. SKIN: No new gross rash. LYMPHATICS: No peripheral lymphadenopathy. LABORATORY INVESTIGATIONS: Showed hemoglobin of 9.7. Chemistry showed a creatinine down to 3.62 wit h BUN of 47, bicarbonate of 19. IMPRESSION: 1. Acute on chronic kidney disease seems to have improved. 2. Chronic kidney disease, stage 4 at baseline. 3. Metabolic acidosis. 4. Obstructive uropathy. PLAN: 1. The patient to continue current renal supportive measures. 2. Outpatient Nephrology followup strongly recommended. 3. Further management to be dependent on the clinical course.
[2018-04-13 07:26] VITALS: BP 159/73; TEMP 97.6
[2018-04-13] MEDS: Allopurinol 100 MG TAB PO SCH (08:46)
[2018-04-13] MEDS: Ciprofloxacin Lactate/D5W 200 MG in Premix Bag 1 BAG IVPB SCH (08:46)
[2018-04-13] MEDS: Calcium Carbonate 500 MG ChewTAB PO SCH (08:46)
[2018-04-13] MEDS: Sodium Bicarbonate Tab 325 MG TAB PO SCH (08:47)
[2018-04-13] MEDS: Ferrous Sulfate 325 MG TAB PO SCH (08:47)
[2018-04-13] MEDS: Tamsulosin HCl 0.4 MG CAP PO SCH (08:47)
[2018-04-13] MEDS: Famotidine 20 MG TAB PO SCH (08:47)
[2018-04-13] MEDS ORDERED: Amlodipine 5 MG TAB PO SCH (09:00)
--- NOTE | 2018-04-13 11:26 | PDOC.PN ---
- Subjective Encounter Start Date: 04/13/18 Encounter Start Time: 09:00 Patient seen and examined. No new complaints. No overnight events - Objective Resuscitation Status: Resuscitation Status FULL:Full Resuscitation MAR Reviewed: Yes Vital Signs & Weight: Vital Signs (12 hours) Temp Pulse Resp BP BP Pulse Ox 04/13/18 08:46 63 159/73 H 04/13/18 08:00 97.6 F 63 18 63 L 04/13/18 07:25 97.6 F 63 18 159/73 H 98 Weight Weight 169 lb 12.095 oz I&O: 04/12/18 04/13/18 04/14/18 06:59 06:59 06:59 Intake Total 1550 1350 240 Output Total 2150 1400 Balance -600 -50 240 Result Diagrams: 04/12/18 04:05 04/12/18 04:05 Phys Exam - Physical Examination Constitutional: NAD HEENT: PERRLA, moist MMs, sclera anicteric Neck: no JVD, supple Respiratory: no wheezing, no rales, no rhonchi Cardiovascular: RRR, no significant murmur, no rub Gastrointestinal: soft, non-tender, no distention, positive bowel sounds cervantes+ Musculoskeletal: no edema, pulses present Neurological: non-focal, normal sensation, moves all 4 limbs Psychiatric: normal affect, A&O x 3 Skin: no rash, normal turgor Dx/Plan (1) Metabolic acidosis Code(s): E87.2 - ACIDOSIS Status: Acute (2) UTI (urinary tract infection) Status: Acute (3) Anemia, normocytic normochromic Code(s): D64.9 - ANEMIA, UNSPECIFIED Status: Chronic (4) BPH (benign prostatic hyperplasia) Code(s): N40.0 - BENIGN PROSTATIC HYPERPLASIA WITHOUT LOWER URINRY TRACT SYMP Status: Chronic (5) Acute on chronic kidney failure Code(s): N17.9 - ACUTE KIDNEY FAILURE, UNSPECIFIED; N18.9 - CHRONIC KIDNEY DISEASE, UNSPECIFIED Status: Acute Qualifiers: Chronic kidney disease stage: unspecified stage (6) Hyperphosphatemia Code(s): E83.39 - OTHER DISORDERS OF PHOSPHORUS METABOLISM Status: Acute Comment: on Tums (7) Hyperuricemia Code(s): E79.0 - HYPERURICEMIA W/O SIGNS OF INFLAM ARTHRIT AND TOPHACEOUS DIS Status: Acute Comment: on Allopurinol (8) Urinary retention due to benign prostatic hyperplasia Code(s): N40.1 - BENIGN PROSTATIC HYPERPLASIA WITH LOWER URINARY TRACT SYMP; R33.8 - OTHER RETENTION OF URINE Status: Acute Comment: with cervantes catheter (9) Vitamin D deficiency Code(s): E55.9 - VITAMIN D DEFICIENCY, UNSPECIFIED Status: Acute Comment: on vitamin D3 - Plan cont current plan of care, continue antibiotics * once we get susceptibility result, will consider discharge with oral meds * medication reviewed as below * symptomatic treatment. Review of Systems - Review of Systems Eyes: negative: Pain, Vision Change, Conjunctivae Inflammation, Eyelid Inflammation, Redness, Other ENT: negative: Ear Pain, Ear Discharge, Nose Pain, Nose Discharge, Nose Congestion, Mouth Pain, Mouth Swelling, Throat Pain, Throat Swelling, Other Respiratory: negative: Cough, Dry, Shortness of Breath, Hemoptysis, SOB with Excertion, Pleuritic Pain, Sputum, Wheezing Cardiovascular: negative: chest pain, palpitations, orthopnea, paroxysmal nocturnal dyspnea, edema, light headedness, other Gastrointestinal: negative: Nausea, Vomiting, Abdominal Pain, Diarrhea, Constipation, Melena, Hematochezia, Other Genitourinary: negative: Dysuria, Frequency, Incontinence, Hematuria, Retention , Other Musculoskeletal: negative: Neck Pain, Shoulder Pain, Arm Pain, Back Pain, Hand Pain, Leg Pain, Foot Pain, Other Skin: negative: Rash, Lesions, Gonzalez, Bruising, Other - Medications/Allergies Allergies/Adverse Reactions: Allergies Allergy/AdvReac Type Severity Reaction Status Date / Time No Known Drug Allergies Allergy Verified 04/09/18 23:54 Medications: Current Medications Hydrocodone Bitart/Acetaminophen ([place] 5/325) 1 tab PO Q4H PRN PRN Reason: Moderate Pain (4-6) Last Admin: 04/11/18 09:12 Dose: 1 tab Al Hydroxide/Mg Hydroxide (Maalox) 15 ml PO Q4H PRN PRN Reason: Heartburn or Indigestion Allopurinol (Zyloprim) 100 mg PO DAILY [facility] Last Admin: 04/13/18 08:46 Dose: 100 mg Amlodipine Besylate (Norvasc) 5 mg PO DAILY [facility] Last Admin: 04/13/18 08:46 Dose: 5 mg Artificial Tears (Tears Naturale) 0 drop EA EYE PRN PRN PRN Reason: Dry Eyes Bisacodyl (Dulcolax) 10 mg [place] DAILYPRN PRN PRN Reason: Constipation Calcium Carbonate (Tums) 1,000 mg PO BID [facility] Last Admin: 04/13/18 08:46 Dose: 1,000 mg Cholecalciferol (Vitamin D3) 1,000 units PO DAILY [facility] Last Admin: 04/13/18 08:47 Dose: 1,000 units Famotidine (Pepcid) 20 mg PO DAILY [facility] Last Admin: 04/13/18 08:47 Dose: 20 mg Ferrous Sulfate (Feosol) 325 mg PO QAM-[facility] Last Admin: 04/13/18 08:47 Dose: 325 mg Guaifenesin (Robitussin Sf) 200 mg PO Q4H PRN PRN Reason: Cough Hydralazine HCl (Apresoline) 10 mg SLOW IVP Q4H PRN PRN Reason: Systolic BP > 180 Ceftriaxone Sodium 1 gm/ (Sodium Chloride) 100 mls @ 200 mls/hr IVPB Q24HR [facility] Last Admin: 04/12/18 16:41 Dose: 100 mls Ciprofloxacin/Dextrose 200 mg/ (Device) 100 mls @ 100 mls/hr IVPB Q12HR [facility] Last Admin: 04/13/18 08:46 Dose: 100 mls Labetalol HCl (Normodyne) 20 mg SLOW IVP Q4H PRN PRN Reason: Systolic BP > 180 Loperamide HCl (Imodium) 2 mg PO PRN PRN PRN Reason: Diarrhea/Loose Stools Loratadine (Claritin) 10 mg PO DAILYPRN PRN PRN Reason: Sinus Symptoms Magnesium Hydroxide (Milk Of Magnesium) 30 ml PO DAILYPRN PRN PRN Reason: Constipation Mineral Oil/White Petrolatum (Eucerin Cream) 0 gm TOP BIDPRN PRN PRN Reason: Dry Skin Ondansetron HCl (Zofran Odt) 4 mg PO Q6H PRN PRN Reason: Nausea/Vomiting Phenol (Chloraseptic [place] 180 Ml Bot) 0 ml PO PRN PRN PRN Reason: Sore Throat Senna (Senokot) 2 tab PO HSPRN PRN PRN Reason: Constipation Sodium Bicarbonate (Bicarbonate, Sodium) 650 mg PO BID [facility] Last Admin: 04/13/18 08:47 Dose: 650 mg Sodium Chloride (Flush - Normal Saline) 10 ml IVF Q12HR [facility] Last Admin: 04/13/18 08:47 Dose: 10 ml Sodium Chloride (Flush - Normal Saline) 10 ml IVF PRN PRN PRN Reason: Saline Flush Last Admin: 04/11/18 16:40 Dose: 10 ml Sodium Chloride ([place] Nasal [place] 0.65%) 0 ml EA NARE QIDPRN PRN PRN Reason: Nasal Congestion Tamsulosin HCl (Flomax) 0.4 mg PO BID [facility] Last Admin: 04/13/18 08:47 Dose: 0.4 mg Zolpidem Tartrate (Ambien) 5 mg PO HSPRN PRN PRN Reason: Insomnia
--- NOTE | 2018-04-13 12:20 | DIS ---
DATE OF ADMISSION: 04/09/2018 DATE OF DISCHARGE: Pending. PRIMARY CARE PHYSICIAN: [facility] call admission. DISCHARGE DISPOSITION: Home with Becerra catheter. PRIMARY DISCHARGE DIAGNOSES: Acute on chronic kidney failure due to obstructive uropathy, hyperphosp hatemia, hypouricemia, metabolic acidosis, urinary retention due to benign enlargement of prostate, c ystitis, urinary tract infection due to Pseudomonas, vitamin D deficiency. SECONDARY DISCHARGE DIAGNOSES: Anemia of renal disease, benign enlargement of prostate. PRIMARY PROCEDURE/OPERATION: None. RADIOLOGICAL INVESTIGATION: Renal ultrasound showed bladder wall thickening. SIGNIFICANT LABORATORY DATA: WBC 8.9, hemoglobin 9.7, platelet 294. Sodium 139, creatinine 3.62, ca lcium 8.0, phosphorus 3.6, albumin 3.3. Serum protein electrophoresis negative. Vitamin D level 17. 7. Iron level 47. PTH 382. Urinalysis suggestive of UTI. Urine culture grew Pseudomonas. Blood c ulture negative. DISCHARGE MEDICATIONS: Cipro 250 mg p.o. b.i.d. for 15 days, allopurinol 100 mg p.o. daily, Norvasc 5 mg p.o. daily, calcium carbonate 500 mg p.o. b.i.d., vitamin D3 1000 unit p.o. daily, Pepcid 20 mg p.o. daily, ferrous sulfate 325 mg p.o. daily, sodium bicarbonate 650 mg p.o. b.i.d., Flomax 0.4 mg p .o. b.i.d. CONTRAINDICATIONS: None. CODE STATUS: FULL CODE. INPATIENT CONSULTANTS: Nephrology, Dr. Neri was following while in hospital. Urology, Dr. Hunter lemos was consulted while in hospital. TEST RESULTS PENDING ON DISCHARGE: None. ALLERGIES: No known drug allergy. DISCHARGE PLAN: Post hospital, the patient is instructed to follow up with his urologist and nephrol ogist as well as primary care physician. HOSPITAL COURSE: A 72-year-old male who has a history of recent bladder biopsy by his urologist in [facility] and he has underlying history of benign enlargement of prostate. He also has underlying chron ic renal insufficiency, but we do not know the baseline status of renal failure stage. We suspected acute on chronic kidney failure and we suspected urinary tract infection. We did ultrasound kidney w hich showed bladder wall thickening. This patient had urinary retention, required Becerra catheter. U rology recommended to leave Becerra catheter in upon discharge. The patient will follow up with his ur ologist in the [place] area or our urologist. He needs to follow up on his pathology report. We tried to give him bicarbonate drip while in hospital, but his renal function did not significantly improve. He has metabolic acidosis and hyperkalemia and that is why renal diet was discussed, low p otassium diet was discussed. We are prescribing sodium bicarbonate upon discharge. He has hyperphos phatemia and that is why Tums was prescribed. He has a uric acid elevated, that is why allopurinol w as prescribed. He was also found with hypertension and that is why amlodipine was prescribed. The p atient will be discharged with Becerra catheter. At this point, we are waiting for susceptibility result of urine culture result which growing Pseudom onas. His blood culture is negative. Once we have culture result, then we will consider discharging him home on oral antibiotic therapy. All new medication prescription will be sent to his pharmacy. The patient is seen and examined at bedside today. Please see my progress note from today for furthe r details.
== END 2018-04-13 17:48 | disposition home or self-care (01) | DRG 683 ==
LOC: ERS 14:04 → T4-A 18:40
PROVIDERS: ADMIT Emergency Medicine; ATTEND Emergency Medicine
DX: N17.9 Acute kidney failure, unspecified (principal); E87.2 Acidosis; N30.90 Cystitis, unspecified without hematuria; B96.5 Pseudomonas (aeruginosa) (mallei) (pseudomallei) as the cause of diseases classified elsewhere; I12.9 Hypertensive chronic kidney disease with stage 1 through stage 4 chronic kidney disease, or unspecified chronic kidney disease; N18.4 Chronic kidney disease, stage 4 (severe); N40.1 Benign prostatic hyperplasia with lower urinary tract symptoms; R33.8 Other retention of urine; N13.9 Obstructive and reflux uropathy, unspecified; E87.5 Hyperkalemia; F17.210 Nicotine dependence, cigarettes, uncomplicated; D63.1 Anemia in chronic kidney disease; E79.0 Hyperuricemia without signs of inflammatory arthritis and tophaceous disease; E55.9 Vitamin D deficiency, unspecified
CPT/HCPCS: 36415; 51702; 76770; 80048; 80053; 80069; 81003; 81015; 82306; 82550; 82570; 82728; 83540; 83550; 83605; 83970; 84100; 84156; 84165; 84300; 84550; 85025; 87040; 87077; 87086; 87186; 96365; 96375; A4216; J0696; J0744; J2270; J7050; Q0162

== ENCOUNTER 2018-11-29 11:54 | Emergency (ER) | payer MEDICARE, MEDICAID | END 2018-11-29 13:32 | disposition home or self-care (01) | LOC: ERS 11:54 | DX: G89.29 Other chronic pain (principal); M25.561 Pain in right knee; N40.0 Benign prostatic hyperplasia without lower urinary tract symptoms; F17.210 Nicotine dependence, cigarettes, uncomplicated | CPT/HCPCS: 99406 ==

== ENCOUNTER 2021-05-29 04:51 | Inpatient (IN) | payer MEDICARE, MEDICAID ==
[2021-05-29 05:41] LABS: Hemoglobin 13.9 g/dL (14.0-18.0); Mean Corpuscular HGB CONC 31.8 g/dL (32.0-36.0); Mean Corpuscular Hemoglobin 29.3 pg (27.0-31.0); Mean Corpuscular Volume 92.2 fL (78.0-98.0); Platelet Count 412 thou/uL (130-400); RBC Distribution Width 14.8 % (11.5-14.5); Red Blood Cell (RBC) Count 4.73 mill/uL (4.70-6.10); White Blood Cell (WBC) Count 20.5 thou/uL (4.8-10.8)
[2021-05-29 05:56] LABS: Band 27 % (5-11); Eosinophils 1 % (0-10); Lymphocytes 1 % (21-51); MDiff Complete? YES; Monocytes 1 % (0-10); Neutrophil 70 % (42-75); Platelet Morphology Comment Appears Increased
[2021-05-29] MEDS ORDERED: Dexamethasone 10 MG/ML VIAL ONE (05:57)
[2021-05-29 06:01] LABS: Albumin 3.9 g/dL (3.4-4.8); Anion Gap 25 mmol/L (10-20); BUN (Urea Nitrogen) 92 mg/dL (8.4-25.7); Bilirubin, Total 0.5 mg/dL (0.2-1.2); Calc. Creatinine Clearance 0 mL/min (70-130); Calcium 7.8 mg/dL (7.8-10.44); Carbon Dioxide 13 mmol/L (23-31); Chloride 102 mmol/L (98-107); Glucose 91 mg/dL (83-110); Potassium 5.5 mmol/L (3.5-5.1); Protein, Total 8.7 g/dL (5.8-8.1); Sodium 134 mmol/L (136-145)
[2021-05-29 06:02] LABS: ALT (SGPT) 18 U/L (8-55); AST (SGOT) 29 U/L (5-34); Alkaline Phosphatase 112 U/L (40-110); Globulin 4.8 g/dL (2.4-3.5)
[2021-05-29] MEDS ORDERED: Bisacodyl 10 MG SUPP PR PRN (07:52)
[2021-05-29] MEDS ORDERED: Ondansetron PF 4 MG/2 ML Vial IVP PRN (07:52)
[2021-05-29] MEDS ORDERED: HYDROcodone/Acetaminophen 5/325 mg Tablet PO PRN (07:52)
[2021-05-29] MEDS ORDERED: Senokot S 8.6-50 MG TAB PO PRN (07:52)
[2021-05-29] MEDS ORDERED: Zolpidem Tartrate 5 MG TAB PO PRN (07:52)
[2021-05-29] MEDS ORDERED: Bisacodyl 5 MG TAB PO PRN (07:52)
[2021-05-29] MEDS ORDERED: Ondansetron ODT 4 MG TAB PO PRN (07:52)
[2021-05-29] MEDS ORDERED: Loperamide HCl 2 MG CAP PO PRN (07:52)
[2021-05-29] MEDS ORDERED: Calcium Carbonate 500 MG ChewTAB PO PRN (07:52)
[2021-05-29 08:04] LABS: SARS-CoV-2 NAA Rapid Test DETECTED (NotDetected)
[2021-05-29 08:16] LABS: Phosphorus 6.6 mg/dL (2.3-4.7)
[2021-05-29 08:44] LABS: CRP (Inflammatory) 48.29 mg/dL (= or < 0.5)
[2021-05-29] MEDS ORDERED: Cefepime 1 GM in Sodium Chloride 0.9% 100 ML IVPB SCH (09:00)
[2021-05-29] MEDS ORDERED: CEFEPIME HCL IN DEXTROSE 5 % 1 GM in Premix Bag 1 BAG IVPB SCH (09:00)
[2021-05-29] MEDS ORDERED: Famotidine 20 MG TAB ONE (10:54)
[2021-05-29] MEDS ORDERED: Insulin Regular 300 UNITS/3 ML VIAL IVP SCH (12:00)
[2021-05-29] MEDS ORDERED: Dextrose 50% Abboject 50 ML SYRINGE SLOW IVP SCH (12:15)
[2021-05-29] MEDS: Cholecalciferol 1,000 UNITS (25 MCG) TAB PO SCH (12:40)
[2021-05-29] MEDS: Doxycycline 100 MG CAP PO SCH ×2 (12:40→22:19)
[2021-05-29] MEDS: Famotidine 20 MG TAB PO SCH (12:40)
[2021-05-29] MEDS: Heparin 5,000 UNITS/ML VIAL SC SCH ×3 (13:07→22:19)
[2021-05-29] MEDS: Ascorbic Acid 500 mg Chewable Tablet PO SCH (13:07)
[2021-05-29] MEDS: Vitamin E 400 UNITS CAP PO SCH (13:08)
[2021-05-29] MEDS: Zinc Sulfate 220 MG CAP PO SCH (13:08)
[2021-05-29] MEDS: Sodium Bicarbonate 150 MEQ in Dextrose 5% in Water 1,000 ML IV SCH (13:17)
[2021-05-29 17:34] LABS: Albumin 3.6 g/dL (3.4-4.8); Anion Gap 24 mmol/L (10-20); BUN (Urea Nitrogen) 96 mg/dL (8.4-25.7); BUN/Creatinine Ratio 12.83; Calc. Creatinine Clearance 0 mL/min (70-130); Calcium 7.3 mg/dL (7.8-10.44); Carbon Dioxide 12 mmol/L (23-31); Chloride 105 mmol/L (98-107); Glucose 154 mg/dL (83-110); Phosphorus 5.8 mg/dL (2.3-4.7); Potassium 4.9 mmol/L (3.5-5.1); Sodium 136 mmol/L (136-145)
[2021-05-29 22:54] VITALS: BMI 25.4
[2021-05-30 05:22] LABS: Band 2 % (5-11); Burr Cells SLIGHT = 2-5 cells (100X) (0-1/hpf); Hemoglobin 12.4 g/dL (14.0-18.0); Lymphocytes 1 % (21-51); MDiff Complete? YES; Mean Corpuscular HGB CONC 32.5 g/dL (32.0-36.0); Mean Corpuscular Hemoglobin 29.5 pg (27.0-31.0); Mean Corpuscular Volume 90.7 fL (78.0-98.0); Mean Platelet Volume 8.1 fL (7.4-10.4); Monocytes 4 % (0-10); Neutrophil 92 % (42-75); Platelet Count 433 thou/uL (130-400); Platelet Morphology Comment Appears Increased; RBC Distribution Width 14.6 % (11.5-14.5); Reactive Lymphocytes 1 % (0-10); Red Blood Cell (RBC) Count 4.22 mill/uL (4.70-6.10); White Blood Cell (WBC) Count 18.3 thou/uL (4.8-10.8)
[2021-05-30 05:25] LABS: ALT (SGPT) 16 U/L (8-55); AST (SGOT) 27 U/L (5-34); Albumin 3.2 g/dL (3.4-4.8); Alkaline Phosphatase 95 U/L (40-110); Anion Gap 19 mmol/L (10-20); BUN (Urea Nitrogen) 95 mg/dL (8.4-25.7); Bilirubin, Total 0.3 mg/dL (0.2-1.2); Calc. Creatinine Clearance 10 mL/min (70-130); Calcium 6.8 mg/dL (7.8-10.44); Carbon Dioxide 17 mmol/L (23-31); Chloride 103 mmol/L (98-107); Glucose 222 mg/dL (83-110); Potassium 3.9 mmol/L (3.5-5.1); Protein, Total 7.2 g/dL (5.8-8.1); Sodium 135 mmol/L (136-145)
[2021-05-30 06:18] LABS: Bacteria/HPF 2+ HPF (None Seen); Bilirubin Negative (Negative); Blood, Urine 2+ (Negative); Clarity Turbid (Clear); Glucose, Urine (Dipstick) Normal (Negative); Ketone, Urine Negative (Negative); Leukocyte 500 Leu/uL (Negative); Nitrite 1+ (Negative); Protein, Urine (Dipstick) 70 mg/dL (Neg-Trace); RBC/HPF 0-3 HPF (0-3); Specific Gravity, Urine 1.013 (1.002-1.036); Squamous Epithelial None Seen HPF (0-3); Urobilinogen Normal mg/dL (Less than 2); WBC/HPF Greater than 50 HPF (0-3); pH, Urine 5.5 (5.0-9.0)
[2021-05-30 06:19] LABS: Urine Culture Reflex Yes Yes
[2021-05-30 06:31] LABS: Protein, Urine Random Quant 88 mg/dL (1-14); Sodium, Urine 45 mmol/L (Not Available); Urea Nitrogen, Random Urine 506 mg/dl
[2021-05-30] MEDS: Sodium Bicarbonate 150 MEQ in Dextrose 5% in Water 1,000 ML IV SCH ×2 (06:55→23:22)
[2021-05-30] MEDS: Doxycycline 100 MG CAP PO SCH ×2 (07:51→23:19)
[2021-05-30] MEDS: Cholecalciferol 1,000 UNITS (25 MCG) TAB PO SCH (07:52)
[2021-05-30] MEDS: Famotidine 20 MG TAB PO SCH (07:52)
[2021-05-30] MEDS: Zinc Sulfate 220 MG CAP PO SCH (07:52)
[2021-05-30] MEDS: Ascorbic Acid 500 mg Chewable Tablet PO SCH (07:52)
[2021-05-30] MEDS: Dexamethasone 4 mg/ml Vial SLOW IVP SCH (07:53)
[2021-05-30] MEDS: Vitamin E 400 UNITS CAP PO SCH (07:53)
[2021-05-30] MEDS: Heparin 5,000 UNITS/ML VIAL SC SCH ×3 (07:54→23:19)
[2021-05-30] MEDS: CEFEPIME HCL IN DEXTROSE 5 % 1 GM in Premix Bag 1 BAG IVPB SCH (13:18)
[2021-05-30] MEDS ORDERED: Heparin 5,000 UNITS/ML VIAL ONE (21:15)
[2021-05-30] MEDS ORDERED: Doxycycline 100 MG CAP ONE (21:15)
[2021-05-30] MEDS ORDERED: Acetaminophen 325 MG TAB ONE (21:15)
[2021-05-30] MEDS: Acetaminophen 325 MG TAB PO PRN (23:19)
[2021-05-31 05:39] LABS: Hemoglobin 11.8 g/dL (14.0-18.0); Mean Corpuscular HGB CONC 33.7 g/dL (32.0-36.0); Mean Corpuscular Hemoglobin 30.6 pg (27.0-31.0); Mean Corpuscular Volume 90.7 fL (78.0-98.0); Mean Platelet Volume 7.7 fL (7.4-10.4); Platelet Count 470 thou/uL (130-400); RBC Distribution Width 14.3 % (11.5-14.5); Red Blood Cell (RBC) Count 3.85 mill/uL (4.70-6.10)
[2021-05-31 05:40] LABS: Band 3 % (5-11); Hypochromia SLIGHT = 6-15 cells (100X) (0-5/hpf); Lymphocytes 5 % (21-51); MDiff Complete? YES; Monocytes 9 % (0-10); Neutrophil 83 % (42-75); Platelet Morphology Comment Appears Increased
[2021-05-31 06:08] LABS: ALT (SGPT) 16 U/L (8-55); AST (SGOT) 28 U/L (5-34); Alkaline Phosphatase 86 U/L (40-110); Anion Gap 18 mmol/L (10-20); BUN (Urea Nitrogen) 91 mg/dL (8.4-25.7); BUN/Creatinine Ratio 16.13; Bilirubin, Total 0.3 mg/dL (0.2-1.2); Calc. Creatinine Clearance 12 mL/min (70-130); Calcium 6.3 mg/dL (7.8-10.44); Carbon Dioxide 24 mmol/L (23-31); Chloride 99 mmol/L (98-107); Globulin 3.7 g/dL (2.4-3.5); Glucose 177 mg/dL (83-110); Magnesium 1.7 mg/dL (1.6-2.6); Phosphorus 3.8 mg/dL (2.3-4.7); Potassium 3.4 mmol/L (3.5-5.1); Protein, Total 6.7 g/dL (5.8-8.1); Sodium 138 mmol/L (136-145)
[2021-05-31] MEDS: Vitamin E 400 UNITS CAP PO SCH (07:41)
[2021-05-31] MEDS: Dexamethasone 4 mg/ml Vial SLOW IVP SCH (07:41)
[2021-05-31] MEDS: Heparin 5,000 UNITS/ML VIAL SC SCH ×3 (07:42→21:10)
[2021-05-31] MEDS: Ascorbic Acid 500 mg Chewable Tablet PO SCH (07:42)
[2021-05-31] MEDS: Famotidine 20 MG TAB PO SCH (07:42)
[2021-05-31] MEDS: Zinc Sulfate 220 MG CAP PO SCH (07:43)
[2021-05-31] MEDS: Doxycycline 100 MG CAP PO SCH ×2 (07:43→21:12)
[2021-05-31] MEDS: Ergocalciferol 1.25 MG(50,000 UNITS) CAP PO SCH (08:00)
[2021-05-31] MEDS: CEFEPIME HCL IN DEXTROSE 5 % 1 GM in Premix Bag 1 BAG IVPB SCH (12:02)
[2021-05-31] MEDS: Sodium Bicarbonate 150 MEQ in Dextrose 5% in Water 1,000 ML IV SCH (12:03)
[2021-05-31] MEDS: Calcium Carbonate 600 MG TAB PO SCH (21:12)
[2021-06-01] MEDS ORDERED: Lactated Ringer's 1,000 ML IV SCH (00:01)
[2021-06-01] MEDS: Acetaminophen 325 MG TAB PO PRN (02:06)
[2021-06-01 05:45] LABS: Anion Gap 18 mmol/L (10-20); BUN (Urea Nitrogen) 78 mg/dL (8.4-25.7); BUN/Creatinine Ratio 16.85; CK (CPK) 551 U/L (30-200); Calc. Creatinine Clearance 15 mL/min (70-130); Calcium 6.4 mg/dL (7.8-10.44); Carbon Dioxide 30 mmol/L (23-31); Chloride 95 mmol/L (98-107); Glucose 115 mg/dL (83-110); Potassium 3.3 mmol/L (3.5-5.1); Sodium 140 mmol/L (136-145)
[2021-06-01] MEDS: Calcium Carbonate 600 MG TAB PO SCH ×2 (08:15→19:42)
[2021-06-01] MEDS: Zinc Sulfate 220 MG CAP PO SCH (08:15)
[2021-06-01] MEDS: Doxycycline 100 MG CAP PO SCH ×2 (08:15→19:43)
[2021-06-01] MEDS: Famotidine 20 MG TAB PO SCH (08:15)
[2021-06-01] MEDS: Ascorbic Acid 500 mg Chewable Tablet PO SCH (08:15)
[2021-06-01] MEDS: Heparin 5,000 UNITS/ML VIAL SC SCH ×3 (08:16→19:43)
[2021-06-01] MEDS: Dexamethasone 4 mg/ml Vial SLOW IVP SCH (08:16)
[2021-06-01] MEDS: Vitamin E 400 UNITS CAP PO SCH (08:16)
[2021-06-01] MEDS ORDERED: Magnesium 2 GM/50 ML 2 GM in Premix Bag 1 BAG IVPB SCH (09:15)
[2021-06-01] MEDS ORDERED: Potassium Chloride 20 MEQ TAB PO SCH (09:15)
[2021-06-01 09:38] LABS: Magnesium 1.5 mg/dL (1.6-2.6)
[2021-06-01] MEDS: CEFEPIME HCL IN DEXTROSE 5 % 1 GM in Premix Bag 1 BAG IVPB SCH (12:26)
[2021-06-02 07:56] LABS: Anion Gap 18 mmol/L (10-20); BUN (Urea Nitrogen) 79 mg/dL (8.4-25.7); CK (CPK) 339 U/L (30-200); Calc. Creatinine Clearance 17 mL/min (70-130); Calcium 6.9 mg/dL (7.8-10.44); Carbon Dioxide 30 mmol/L (23-31); Chloride 97 mmol/L (98-107); Glucose 111 mg/dL (83-110); Phosphorus 3.6 mg/dL (2.3-4.7); Potassium 3.6 mmol/L (3.5-5.1); Sodium 141 mmol/L (136-145)
[2021-06-02] MEDS: Calcium Carbonate 600 MG TAB PO SCH ×2 (09:11→20:13)
[2021-06-02] MEDS: Dexamethasone 4 mg/ml Vial SLOW IVP SCH (09:12)
[2021-06-02] MEDS: Ascorbic Acid 500 mg Chewable Tablet PO SCH (09:12)
[2021-06-02] MEDS: Heparin 5,000 UNITS/ML VIAL SC SCH ×3 (09:12→20:13)
[2021-06-02] MEDS: Zinc Sulfate 220 MG CAP PO SCH (09:12)
[2021-06-02] MEDS: Famotidine 20 MG TAB PO SCH (09:12)
[2021-06-02] MEDS: Doxycycline 100 MG CAP PO SCH ×2 (09:13→20:13)
[2021-06-02] MEDS: Vitamin E 400 UNITS CAP PO SCH (09:13)
[2021-06-02] MEDS: Acetaminophen 325 MG TAB PO PRN (11:12)
[2021-06-02] MEDS: CEFEPIME HCL IN DEXTROSE 5 % 1 GM in Premix Bag 1 BAG IVPB SCH (12:55)
[2021-06-03] MEDS: Acetaminophen 325 MG TAB PO PRN ×2 (01:14→13:41)
[2021-06-03 05:43] LABS: Albumin 2.8 g/dL (3.4-4.8); Anion Gap 14 mmol/L (10-20); BUN (Urea Nitrogen) 79 mg/dL (8.4-25.7); BUN/Creatinine Ratio 21.94; Calc. Creatinine Clearance 19 mL/min (70-130); Calcium 7.1 mg/dL (7.8-10.44); Carbon Dioxide 31 mmol/L (23-31); Chloride 98 mmol/L (98-107); Glucose 107 mg/dL (83-110); Phosphorus 3.1 mg/dL (2.3-4.7); Potassium 3.7 mmol/L (3.5-5.1); Sodium 139 mmol/L (136-145)
[2021-06-03 05:48] LABS: CK (CPK) 203 U/L (30-200); CRP (Inflammatory) 19.38 mg/dL (= or < 0.5); Hemoglobin 11.7 g/dL (14.0-18.0); Magnesium 1.8 mg/dL (1.6-2.6); Mean Corpuscular HGB CONC 30.5 g/dL (32.0-36.0); Mean Corpuscular Hemoglobin 28.6 pg (27.0-31.0); Mean Corpuscular Volume 93.8 fL (78.0-98.0); Mean Platelet Volume 7.5 fL (7.4-10.4); Platelet Count 556 thou/uL (130-400); RBC Distribution Width 13.9 % (11.5-14.5); Red Blood Cell (RBC) Count 4.08 mill/uL (4.70-6.10); White Blood Cell (WBC) Count 13.2 thou/uL (4.8-10.8)
[2021-06-03 08:55] LABS: Band 13 % (5-11); Lymphocytes 5 % (21-51); MDiff Complete? YES; Metamyelocyte 5 % (0-0); Myelocyte 4 % (0-0); Neutrophil 73 % (42-75); Platelet Morphology Comment Appears Increased; Polychromasia SLIGHT = 2-3 cells (100X) (0-2/hpf)
[2021-06-03] MEDS: Calcium Carbonate 600 MG TAB PO SCH ×2 (08:55→20:11)
[2021-06-03] MEDS: Ascorbic Acid 500 mg Chewable Tablet PO SCH (08:55)
[2021-06-03] MEDS: Doxycycline 100 MG CAP PO SCH ×2 (08:56→20:11)
[2021-06-03] MEDS: Famotidine 20 MG TAB PO SCH (08:56)
[2021-06-03] MEDS: Dexamethasone 4 mg/ml Vial SLOW IVP SCH (08:56)
[2021-06-03] MEDS: Zinc Sulfate 220 MG CAP PO SCH (08:56)
[2021-06-03] MEDS: Vitamin E 400 UNITS CAP PO SCH (08:56)
[2021-06-03] MEDS: Heparin 5,000 UNITS/ML VIAL SC SCH ×3 (08:57→20:12)
[2021-06-03] MEDS: Cefepime 1 GM in Sodium Chloride 0.9% 100 ML IVPB SCH (13:41)
[2021-06-03] MEDS: Guaifenesin DM 100-10/5 ML UDCUP PO PRN (13:42)
[2021-06-04] MEDS: Acetaminophen 325 MG TAB PO PRN ×2 (01:57→08:42)
[2021-06-04 05:39] LABS: Hemoglobin 12.2 g/dL (14.0-18.0); Mean Corpuscular HGB CONC 30.3 g/dL (32.0-36.0); Mean Corpuscular Hemoglobin 28.2 pg (27.0-31.0); Mean Platelet Volume 7.7 fL (7.4-10.4); Platelet Count 555 thou/uL (130-400); Red Blood Cell (RBC) Count 4.33 mill/uL (4.70-6.10); White Blood Cell (WBC) Count 14.8 thou/uL (4.8-10.8)
[2021-06-04 05:51] LABS: Albumin 2.9 g/dL (3.4-4.8); Anion Gap 17 mmol/L (10-20); BUN (Urea Nitrogen) 79 mg/dL (8.4-25.7); BUN/Creatinine Ratio 24.53; Calc. Creatinine Clearance 21 mL/min (70-130); Calcium 7.9 mg/dL (7.8-10.44); Carbon Dioxide 27 mmol/L (23-31); Chloride 99 mmol/L (98-107); Glucose 144 mg/dL (83-110); Phosphorus 2.6 mg/dL (2.3-4.7); Potassium 3.9 mmol/L (3.5-5.1); Sodium 139 mmol/L (136-145)
[2021-06-04 06:45] LABS: Magnesium 1.7 mg/dL (1.6-2.6)
[2021-06-04 07:04] LABS: Band 12 % (5-11); Lymphocytes 8 % (21-51); MDiff Complete? YES; Monocytes 4 % (0-10); Neutrophil 76 % (42-75)
[2021-06-04] MEDS: Dexamethasone 4 mg/ml Vial SLOW IVP SCH (08:41)
[2021-06-04] MEDS: Calcium Carbonate 600 MG TAB PO SCH ×2 (08:41→20:01)
[2021-06-04] MEDS: Ascorbic Acid 500 mg Chewable Tablet PO SCH (08:41)
[2021-06-04] MEDS: Doxycycline 100 MG CAP PO SCH ×2 (08:42→20:01)
[2021-06-04] MEDS: Famotidine 20 MG TAB PO SCH (08:42)
[2021-06-04] MEDS: Vitamin E 400 UNITS CAP PO SCH (08:42)
[2021-06-04] MEDS: Zinc Sulfate 220 MG CAP PO SCH (08:42)
[2021-06-04] MEDS: Heparin 5,000 UNITS/ML VIAL SC SCH ×3 (08:43→20:05)
[2021-06-04] MEDS ORDERED: Magnesium Oxide 400 MG TAB PO SCH (11:00)
[2021-06-04] MEDS: Cefepime 1 GM in Sodium Chloride 0.9% 100 ML IVPB SCH (14:35)
[2021-06-04] MEDS: Guaifenesin DM 100-10/5 ML UDCUP PO PRN (14:44)
[2021-06-04] MEDS: Magnesium Oxide 400 MG TAB PO SCH (20:00)
[2021-06-05 05:45] LABS: Anion Gap 16 mmol/L (10-20); BUN (Urea Nitrogen) 76 mg/dL (8.4-25.7); Calc. Creatinine Clearance 22 mL/min (70-130); Calcium 8.8 mg/dL (7.8-10.44); Carbon Dioxide 26 mmol/L (23-31); Chloride 102 mmol/L (98-107); Glucose 130 mg/dL (83-110); Phosphorus 2.9 mg/dL (2.3-4.7); Potassium 4.1 mmol/L (3.5-5.1); Sodium 140 mmol/L (136-145)
[2021-06-05] MEDS: Acetaminophen 325 MG TAB PO PRN (06:40)
[2021-06-05] MEDS: Calcium Carbonate 600 MG TAB PO SCH ×2 (08:29→20:15)
[2021-06-05] MEDS: Zinc Sulfate 220 MG CAP PO SCH (08:29)
[2021-06-05] MEDS: Ascorbic Acid 500 mg Chewable Tablet PO SCH (08:29)
[2021-06-05] MEDS: Famotidine 20 MG TAB PO SCH (08:29)
[2021-06-05] MEDS: Heparin 5,000 UNITS/ML VIAL SC SCH ×3 (08:29→20:15)
[2021-06-05] MEDS: Dexamethasone 4 mg/ml Vial SLOW IVP SCH (08:29)
[2021-06-05] MEDS: Magnesium Oxide 400 MG TAB PO SCH ×2 (08:29→20:15)
[2021-06-05] MEDS: Doxycycline 100 MG CAP PO SCH ×2 (08:29→20:15)
[2021-06-05] MEDS: Vitamin E 400 UNITS CAP PO SCH (08:30)
[2021-06-05] MEDS ORDERED: Furosemide 100 MG/10 ML VIAL SLOW IVP SCH (09:45)
[2021-06-05] MEDS: Cefepime 1 GM in Sodium Chloride 0.9% 100 ML IVPB SCH (12:16)
[2021-06-05 12:56] LABS: Bacteria/HPF None Seen HPF (None Seen); Bilirubin Negative (Negative); Blood, Urine Trace (Negative); Clarity Clear (Clear); Glucose, Urine (Dipstick) Normal (Negative); Ketone, Urine Negative (Negative); Leukocyte Negative Leu/uL (Negative); Nitrite Negative (Negative); Protein, Urine (Dipstick) 70 mg/dL (Neg-Trace); RBC/HPF 0-3 HPF (0-3); Specific Gravity, Urine 1.015 (1.002-1.036); Squamous Epithelial 0-3 HPF (0-3); Urobilinogen Normal mg/dL (Less than 2); WBC/HPF 0-3 HPF (0-3)
[2021-06-05 13:00] LABS: Urine Culture Reflex No No
[2021-06-06] MEDS ORDERED: Albuterol Sulfate 2.5 mg/3 ml Neb NEB PRN (02:01)
[2021-06-06] MEDS ORDERED: Albuterol 200 PUFF (6.7GM INHALER) INH PRN (02:26)
[2021-06-06 05:22] LABS: Hemoglobin 12.2 g/dL (14.0-18.0); Mean Corpuscular HGB CONC 30.8 g/dL (32.0-36.0); Mean Corpuscular Hemoglobin 29.1 pg (27.0-31.0); Mean Corpuscular Volume 94.5 fL (78.0-98.0); Mean Platelet Volume 7.7 fL (7.4-10.4); Platelet Count 588 thou/uL (130-400); RBC Distribution Width 14.6 % (11.5-14.5); Red Blood Cell (RBC) Count 4.19 mill/uL (4.70-6.10); White Blood Cell (WBC) Count 18.6 thou/uL (4.8-10.8)
[2021-06-06 06:38] LABS: Albumin 2.9 g/dL (3.4-4.8)
[2021-06-06 06:40] LABS: Chloride 100 mmol/L (98-107); Potassium 4.4 mmol/L (3.5-5.1); Sodium 138 mmol/L (136-145)
[2021-06-06 06:41] LABS: Calcium 9.3 mg/dL (7.8-10.44); Glucose 101 mg/dL (83-110)
[2021-06-06 06:43] LABS: Anion Gap 17 mmol/L (10-20); Carbon Dioxide 25 mmol/L (23-31)
[2021-06-06 06:44] LABS: Calc. Creatinine Clearance 21 mL/min (70-130); Phosphorus 3.4 mg/dL (2.3-4.7)
[2021-06-06 06:45] LABS: BUN (Urea Nitrogen) 81 mg/dL (8.4-25.7); BUN/Creatinine Ratio 25.16
[2021-06-06 07:44] LABS: MDiff Complete? YES; Platelet Morphology Comment Appears Increased; RBC Morphology Normal; Reactive Lymphocytes 1 % (0-10)
[2021-06-06 07:56] LABS: Band 10 % (5-11); Eosinophils 1 % (0-10); Lymphocytes 3 % (21-51); Metamyelocyte 3 % (0-0); Monocytes 2 % (0-10); Myelocyte 5 % (0-0); Neutrophil 75 % (42-75)
[2021-06-06 07:57] LABS: Polychromasia SLIGHT = 2-3 cells (100X) (0-2/hpf); Toxic Granulation SLIGHT
[2021-06-06] MEDS: Doxycycline 100 MG CAP PO SCH ×2 (08:14→19:59)
[2021-06-06] MEDS: Magnesium Oxide 400 MG TAB PO SCH ×2 (08:14→19:59)
[2021-06-06] MEDS: Ascorbic Acid 500 mg Chewable Tablet PO SCH (08:15)
[2021-06-06] MEDS: Vitamin E 400 UNITS CAP PO SCH (08:15)
[2021-06-06] MEDS: Famotidine 20 MG TAB PO SCH (08:15)
[2021-06-06] MEDS: Zinc Sulfate 220 MG CAP PO SCH (08:15)
[2021-06-06] MEDS: Calcium Carbonate 600 MG TAB PO SCH ×2 (08:15→19:59)
[2021-06-06] MEDS: Heparin 5,000 UNITS/ML VIAL SC SCH ×3 (08:15→19:59)
[2021-06-06] MEDS: Dexamethasone 4 mg/ml Vial SLOW IVP SCH (08:15)
[2021-06-06] MEDS: Cefepime 1 GM in Sodium Chloride 0.9% 100 ML IVPB SCH (12:07)
[2021-06-06 17:57] LABS: Actual Bicarbonate (HCO3a) 23.7 mEq/L (22-28); Base Excess (BEa) 0.5 mEq/L (-2.0 to +3.0); CO2 Tension 33.6 mmHg (35.0-45.0); Carboxyhemoglobin (COHb) 0.3 gm% (0.0-3.0); Potassium - ABG Lab 4.95 mmol/L (3.70-5.30); pH, Arterial 7.47 (7.35-7.45)
[2021-06-06 18:00] LABS: O2 Tension (PaO2), arterial 52.6 mmHg (> 70.0); Puncture Site LRA
[2021-06-07] MEDS: Acetaminophen 325 MG TAB PO PRN (04:41)
[2021-06-07] MEDS: Ascorbic Acid 500 mg Chewable Tablet PO SCH (08:31)
[2021-06-07] MEDS: Heparin 5,000 UNITS/ML VIAL SC SCH ×3 (08:31→19:55)
[2021-06-07] MEDS: Vitamin E 400 UNITS CAP PO SCH (08:31)
[2021-06-07] MEDS: Dexamethasone 4 mg/ml Vial SLOW IVP SCH (08:31)
[2021-06-07] MEDS: Doxycycline 100 MG CAP PO SCH ×2 (08:31→19:55)
[2021-06-07] MEDS: Magnesium Oxide 400 MG TAB PO SCH ×2 (08:31→19:55)
[2021-06-07] MEDS: Calcium Carbonate 600 MG TAB PO SCH (08:31)
[2021-06-07] MEDS: Famotidine 20 MG TAB PO SCH (08:32)
[2021-06-07] MEDS: Zinc Sulfate 220 MG CAP PO SCH (08:32)
[2021-06-07] MEDS: Ergocalciferol 1.25 MG(50,000 UNITS) CAP PO SCH (08:38)
[2021-06-07] MEDS: Cefepime 1 GM in Sodium Chloride 0.9% 100 ML IVPB SCH (13:52)
[2021-06-08 05:01] LABS: Mean Corpuscular HGB CONC 31.8 g/dL (32.0-36.0); Mean Corpuscular Hemoglobin 29.7 pg (27.0-31.0); Mean Corpuscular Volume 93.2 fL (78.0-98.0); Mean Platelet Volume 7.9 fL (7.4-10.4); Platelet Count 556 thou/uL (130-400); RBC Distribution Width 14.2 % (11.5-14.5); Red Blood Cell (RBC) Count 4.03 mill/uL (4.70-6.10); White Blood Cell (WBC) Count 18.6 thou/uL (4.8-10.8)
[2021-06-08 05:09] LABS: Anion Gap 15 mmol/L (10-20); BUN (Urea Nitrogen) 86 mg/dL (8.4-25.7); CRP (Inflammatory) 14.92 mg/dL (= or < 0.5); Calc. Creatinine Clearance 21 mL/min (70-130); Carbon Dioxide 23 mmol/L (23-31); Chloride 104 mmol/L (98-107); Glucose 113 mg/dL (83-110); Sodium 137 mmol/L (136-145)
[2021-06-08 06:23] LABS: Band 9 % (5-11); Lymphocytes 8 % (21-51); MDiff Complete? YES; Monocytes 1 % (0-10); Myelocyte 4 % (0-0); Neutrophil 78 % (42-75)
[2021-06-08] MEDS: Magnesium Oxide 400 MG TAB PO SCH ×2 (08:42→19:52)
[2021-06-08] MEDS: Doxycycline 100 MG CAP PO SCH (08:42)
[2021-06-08] MEDS: Vitamin E 400 UNITS CAP PO SCH (08:42)
[2021-06-08] MEDS: Famotidine 20 MG TAB PO SCH (08:42)
[2021-06-08] MEDS: Zinc Sulfate 220 MG CAP PO SCH (08:43)
[2021-06-08] MEDS: Heparin 5,000 UNITS/ML VIAL SC SCH ×3 (08:43→19:52)
[2021-06-08] MEDS: Dexamethasone 4 mg/ml Vial SLOW IVP SCH (08:43)
[2021-06-08] MEDS: Ascorbic Acid 500 mg Chewable Tablet PO SCH (08:43)
[2021-06-08] MEDS: Cefepime 1 GM in Sodium Chloride 0.9% 100 ML IVPB SCH (12:10)
[2021-06-08] MEDS: Metoprolol Tartrate 25 MG TAB PO SCH (20:24)
[2021-06-09 05:04] LABS: Hemoglobin 12.5 g/dL (14.0-18.0); Mean Corpuscular HGB CONC 32.5 g/dL (32.0-36.0); Mean Corpuscular Hemoglobin 30.1 pg (27.0-31.0); Mean Corpuscular Volume 92.8 fL (78.0-98.0); Platelet Count 508 thou/uL (130-400); RBC Distribution Width 14.4 % (11.5-14.5); Red Blood Cell (RBC) Count 4.15 mill/uL (4.70-6.10); White Blood Cell (WBC) Count 19.5 thou/uL (4.8-10.8)
[2021-06-09 05:25] LABS: Anion Gap 15 mmol/L (10-20); BUN (Urea Nitrogen) 81 mg/dL (8.4-25.7); CRP (Inflammatory) 13.72 mg/dL (= or < 0.5); Calc. Creatinine Clearance 22 mL/min (70-130); Calcium 9.3 mg/dL (7.8-10.44); Carbon Dioxide 22 mmol/L (23-31); Chloride 102 mmol/L (98-107); Glucose 155 mg/dL (83-110); Sodium 134 mmol/L (136-145)
[2021-06-09 05:29] LABS: Band 3 % (5-11); Eosinophils 1 % (0-10); Lymphocytes 4 % (21-51); MDiff Complete? YES; Metamyelocyte 1 % (0-0); Monocytes 6 % (0-10); Myelocyte 1 % (0-0); Neutrophil 84 % (42-75)
[2021-06-09] MEDS: Sodium Bicarbonate Tab 325 MG TAB PO SCH ×2 (08:33→19:58)
[2021-06-09] MEDS: Metoprolol Tartrate 25 MG TAB PO SCH ×2 (08:33→19:58)
[2021-06-09] MEDS: Vitamin E 400 UNITS CAP PO SCH (08:33)
[2021-06-09] MEDS: Ascorbic Acid 500 mg Chewable Tablet PO SCH (08:34)
[2021-06-09] MEDS: Zinc Sulfate 220 MG CAP PO SCH (08:34)
[2021-06-09] MEDS: Heparin 5,000 UNITS/ML VIAL SC SCH ×3 (08:34→19:57)
[2021-06-09] MEDS: Dexamethasone 4 mg/ml Vial SLOW IVP SCH (08:34)
[2021-06-09] MEDS: Famotidine 20 MG TAB PO SCH (08:34)
[2021-06-09] MEDS: Magnesium Oxide 400 MG TAB PO SCH ×2 (08:34→19:58)
[2021-06-09] MEDS: Cefepime 1 GM in Sodium Chloride 0.9% 100 ML IVPB SCH (12:08)
[2021-06-10 05:28] LABS: Anion Gap 16 mmol/L (10-20); BUN (Urea Nitrogen) 85 mg/dL (8.4-25.7); Calc. Creatinine Clearance 21 mL/min (70-130); Calcium 9.2 mg/dL (7.8-10.44); Carbon Dioxide 20 mmol/L (23-31); Chloride 104 mmol/L (98-107); Glucose 118 mg/dL (83-110); Potassium 5.4 mmol/L (3.5-5.1); Sodium 135 mmol/L (136-145)
[2021-06-10 05:32] LABS: Band 1 % (5-11); Eosinophils 2 % (0-10); Hemoglobin 12.7 g/dL (14.0-18.0); Hypochromia SLIGHT = 6-15 cells (100X) (0-5/hpf); Lymphocytes 2 % (21-51); MDiff Complete? YES; Mean Corpuscular HGB CONC 30.6 g/dL (32.0-36.0); Mean Corpuscular Hemoglobin 28.4 pg (27.0-31.0); Mean Corpuscular Volume 92.8 fL (78.0-98.0); Mean Platelet Volume 7.9 fL (7.4-10.4); Metamyelocyte 2 % (0-0); Monocytes 6 % (0-10); Myelocyte 4 % (0-0); Neutrophil 83 % (42-75); Platelet Count 526 thou/uL (130-400); Platelet Morphology Comment Appears Increased; RBC Distribution Width 14.6 % (11.5-14.5); Red Blood Cell (RBC) Count 4.48 mill/uL (4.70-6.10); White Blood Cell (WBC) Count 21.6 thou/uL (4.8-10.8)
[2021-06-10] MEDS: Famotidine 20 MG TAB PO SCH (09:17)
[2021-06-10] MEDS: Vitamin E 400 UNITS CAP PO SCH (09:17)
[2021-06-10] MEDS: Ascorbic Acid 500 mg Chewable Tablet PO SCH (09:17)
[2021-06-10] MEDS: Sodium Bicarbonate Tab 325 MG TAB PO SCH ×3 (09:17→23:21)
[2021-06-10] MEDS: Zinc Sulfate 220 MG CAP PO SCH (09:17)
[2021-06-10] MEDS: Metoprolol Tartrate 25 MG TAB PO SCH ×2 (09:18→23:19)
[2021-06-10] MEDS: Magnesium Oxide 400 MG TAB PO SCH ×2 (09:19→23:19)
[2021-06-10] MEDS: Enoxaparin Sodium 30 MG/0.3 ML SYRINGE SC SCH (23:18)
[2021-06-11 04:49] LABS: #Basophils 0.1 thou/uL (0.0-0.2); #Eosinphils 0.3 thou/uL (0.0-0.7); #Lymphocytes 0.5 thou/uL (1.20-3.40); #Monocytes 0.5 thou/uL (0.11-0.59); #Neutrophils 16.4 thou/uL (1.40-6.50); %Basophils 0.3 % (0.0-1.0); %Eosinophils 1.6 % (0.0-10.0); %Lymphocytes 2.7 % (21.0-51.0); %Monocytes 2.7 % (0.0-10.0); %Neutrophils 92.7 % (42.0-75.0); Hemoglobin 12.7 g/dL (14.0-18.0); Mean Corpuscular Hemoglobin 28.8 pg (27.0-31.0); Mean Corpuscular Volume 92.8 fL (78.0-98.0); Mean Platelet Volume 7.9 fL (7.4-10.4); Platelet Count 503 thou/uL (130-400); RBC Distribution Width 14.8 % (11.5-14.5); Red Blood Cell (RBC) Count 4.42 mill/uL (4.70-6.10); White Blood Cell (WBC) Count 17.7 thou/uL (4.8-10.8)
[2021-06-11 05:17] LABS: ALT (SGPT) 96 U/L (8-55); AST (SGOT) 33 U/L (5-34); Albumin 2.8 g/dL (3.4-4.8); Alkaline Phosphatase 112 U/L (40-110); Anion Gap 16 mmol/L (10-20); BUN (Urea Nitrogen) 82 mg/dL (8.4-25.7); BUN/Creatinine Ratio 27.06; Bilirubin, Total 0.5 mg/dL (0.2-1.2); Calc. Creatinine Clearance 23 mL/min (70-130); Calcium 8.1 mg/dL (7.8-10.44); Carbon Dioxide 22 mmol/L (23-31); Chloride 102 mmol/L (98-107); Globulin 3.4 g/dL (2.4-3.5); Glucose 107 mg/dL (83-110); Phosphorus 4.8 mg/dL (2.3-4.7); Potassium 5.1 mmol/L (3.5-5.1); Protein, Total 6.2 g/dL (5.8-8.1); Sodium 135 mmol/L (136-145)
[2021-06-11] MEDS ORDERED: Dexamethasone 6 MG in Sodium Chloride 0.9% 50 ML IVPB SCH (09:00)
[2021-06-11] MEDS ORDERED: Dexamethasone 4 mg/ml Vial SLOW IVP SCH (09:00)
[2021-06-11] MEDS: Aspirin 81 mg Enteric Coated Tablet PO SCH (09:18)
[2021-06-11] MEDS: Ascorbic Acid 500 mg Chewable Tablet PO SCH (09:19)
[2021-06-11] MEDS: Zinc Sulfate 220 MG CAP PO SCH (09:19)
[2021-06-11] MEDS: Vitamin E 400 UNITS CAP PO SCH (09:19)
[2021-06-11] MEDS: Metoprolol Tartrate 25 MG TAB PO SCH ×2 (09:19→20:25)
[2021-06-11] MEDS: Famotidine 20 MG TAB PO SCH (09:19)
[2021-06-11] MEDS: Sodium Bicarbonate Tab 325 MG TAB PO SCH ×3 (09:20→20:25)
[2021-06-11] MEDS: Magnesium Oxide 400 MG TAB PO SCH ×2 (09:20→20:25)
[2021-06-11] MEDS: Enoxaparin Sodium 30 MG/0.3 ML SYRINGE SC SCH (20:25)
[2021-06-11] MEDS: Dexamethasone 4 mg/ml Vial SLOW IVP SCH (20:26)
[2021-06-12 05:09] LABS: #Lymphocytes 0.4 thou/uL (1.20-3.40); #Monocytes 0.3 thou/uL (0.11-0.59); #Neutrophils 16.3 thou/uL (1.40-6.50); %Eosinophils 0.2 % (0.0-10.0); %Lymphocytes 2.6 % (21.0-51.0); %Monocytes 1.6 % (0.0-10.0); %Neutrophils 95.6 % (42.0-75.0); Hemoglobin 11.4 g/dL (14.0-18.0); Mean Corpuscular HGB CONC 31.5 g/dL (32.0-36.0); Mean Corpuscular Hemoglobin 29.4 pg (27.0-31.0); Mean Corpuscular Volume 93.2 fL (78.0-98.0); Mean Platelet Volume 8.1 fL (7.4-10.4); Platelet Count 450 thou/uL (130-400); RBC Distribution Width 14.6 % (11.5-14.5)
[2021-06-12 05:35] LABS: ALT (SGPT) 81 U/L (8-55); AST (SGOT) 28 U/L (5-34); Albumin 2.7 g/dL (3.4-4.8); Alkaline Phosphatase 111 U/L (40-110); Anion Gap 17 mmol/L (10-20); BUN (Urea Nitrogen) 89 mg/dL (8.4-25.7); Bilirubin, Total 0.4 mg/dL (0.2-1.2); CRP (Inflammatory) 23.71 mg/dL (= or < 0.5); Calc. Creatinine Clearance 22 mL/min (70-130); Calcium 8.8 mg/dL (7.8-10.44); Carbon Dioxide 22 mmol/L (23-31); Chloride 101 mmol/L (98-107); Globulin 4.4 g/dL (2.4-3.5); Glucose 289 mg/dL (83-110); Potassium 4.7 mmol/L (3.5-5.1); Protein, Total 7.1 g/dL (5.8-8.1); Sodium 135 mmol/L (136-145)
[2021-06-12] MEDS: Vitamin E 400 UNITS CAP PO SCH (07:59)
[2021-06-12] MEDS: Ascorbic Acid 500 mg Chewable Tablet PO SCH (07:59)
[2021-06-12] MEDS: Sodium Bicarbonate Tab 325 MG TAB PO SCH ×3 (07:59→20:29)
[2021-06-12] MEDS: Zinc Sulfate 220 MG CAP PO SCH (08:00)
[2021-06-12] MEDS: Famotidine 20 MG TAB PO SCH (08:00)
[2021-06-12] MEDS: Aspirin 81 mg Enteric Coated Tablet PO SCH (08:00)
[2021-06-12] MEDS: Metoprolol Tartrate 25 MG TAB PO SCH ×2 (08:00→20:29)
[2021-06-12] MEDS: Magnesium Oxide 400 MG TAB PO SCH ×2 (08:00→20:29)
[2021-06-12] MEDS: Dexamethasone 4 mg/ml Vial SLOW IVP SCH ×2 (08:01→20:31)
[2021-06-12] MEDS: Enoxaparin Sodium 30 MG/0.3 ML SYRINGE SC SCH (20:30)
[2021-06-13 05:39] LABS: Band 4 % (5-11); Hemoglobin 12.4 g/dL (14.0-18.0); Hypochromia SLIGHT = 6-15 cells (100X) (0-5/hpf); Lymphocytes 6 % (21-51); MDiff Complete? YES; Mean Corpuscular HGB CONC 30.8 g/dL (32.0-36.0); Mean Corpuscular Hemoglobin 28.8 pg (27.0-31.0); Mean Corpuscular Volume 93.3 fL (78.0-98.0); Mean Platelet Volume 8.2 fL (7.4-10.4); Metamyelocyte 1 % (0-0); Neutrophil 89 % (42-75); Platelet Count 446 thou/uL (130-400); Platelet Morphology Comment Appears Increased; RBC Distribution Width 14.6 % (11.5-14.5); Red Blood Cell (RBC) Count 4.29 mill/uL (4.70-6.10); White Blood Cell (WBC) Count 23.6 thou/uL (4.8-10.8)
[2021-06-13 05:49] LABS: ALT (SGPT) 86 U/L (8-55); AST (SGOT) 32 U/L (5-34); Albumin 2.9 g/dL (3.4-4.8); Alkaline Phosphatase 105 U/L (40-110); Anion Gap 18 mmol/L (10-20); BUN (Urea Nitrogen) 86 mg/dL (8.4-25.7); Bilirubin, Total 0.3 mg/dL (0.2-1.2); Calc. Creatinine Clearance 23 mL/min (70-130); Calcium 9.1 mg/dL (7.8-10.44); Carbon Dioxide 20 mmol/L (23-31); Chloride 105 mmol/L (98-107); Globulin 4.1 g/dL (2.4-3.5); Glucose 231 mg/dL (83-110); Potassium 4.8 mmol/L (3.5-5.1); Sodium 138 mmol/L (136-145)
[2021-06-13] MEDS: Metoprolol Tartrate 25 MG TAB PO SCH ×2 (09:29→20:18)
[2021-06-13] MEDS: Famotidine 20 MG TAB PO SCH (09:29)
[2021-06-13] MEDS: Sodium Bicarbonate Tab 325 MG TAB PO SCH ×3 (09:29→20:18)
[2021-06-13] MEDS: Aspirin 81 mg Enteric Coated Tablet PO SCH (09:29)
[2021-06-13] MEDS: Ascorbic Acid 500 mg Chewable Tablet PO SCH (09:29)
[2021-06-13] MEDS: Zinc Sulfate 220 MG CAP PO SCH (09:29)
[2021-06-13] MEDS: Dexamethasone 4 mg/ml Vial SLOW IVP SCH ×2 (09:30→20:18)
[2021-06-13] MEDS: Vitamin E 400 UNITS CAP PO SCH (09:30)
[2021-06-13] MEDS: Magnesium Oxide 400 MG TAB PO SCH ×2 (09:30→20:18)
[2021-06-13] MEDS ORDERED: Furosemide 20 MG/2 ML VIAL SLOW IVP SCH (15:15)
[2021-06-13] MEDS: Enoxaparin Sodium 30 MG/0.3 ML SYRINGE SC SCH (20:18)
[2021-06-14 05:07] LABS: #Basophils 0.2 thou/uL (0.0-0.2); #Eosinphils 0.1 thou/uL (0.0-0.7); #Lymphocytes 0.3 thou/uL (1.20-3.40); #Monocytes 0.8 thou/uL (0.11-0.59); #Neutrophils 16.9 thou/uL (1.40-6.50); %Basophils 1.2 % (0.0-1.0); %Eosinophils 0.3 % (0.0-10.0); %Lymphocytes 1.7 % (21.0-51.0); %Monocytes 4.4 % (0.0-10.0); %Neutrophils 92.3 % (42.0-75.0); Hemoglobin 13.1 g/dL (14.0-18.0); Mean Corpuscular Volume 93.7 fL (78.0-98.0); Mean Platelet Volume 8.1 fL (7.4-10.4); Platelet Count 443 thou/uL (130-400); RBC Distribution Width 14.7 % (11.5-14.5); Red Blood Cell (RBC) Count 4.51 mill/uL (4.70-6.10); White Blood Cell (WBC) Count 18.3 thou/uL (4.8-10.8)
[2021-06-14 05:49] LABS: ALT (SGPT) 96 U/L (8-55); AST (SGOT) 33 U/L (5-34); Albumin 3.1 g/dL (3.4-4.8); Alkaline Phosphatase 109 U/L (40-110); Anion Gap 18 mmol/L (10-20); BUN (Urea Nitrogen) 86 mg/dL (8.4-25.7); Bilirubin, Total 0.3 mg/dL (0.2-1.2); CRP (Inflammatory) 7.07 mg/dL (= or < 0.5); Calc. Creatinine Clearance 22 mL/min (70-130); Calcium 9.4 mg/dL (7.8-10.44); Carbon Dioxide 22 mmol/L (23-31); Chloride 104 mmol/L (98-107); Globulin 4.6 g/dL (2.4-3.5); Glucose 192 mg/dL (83-110); Potassium 5.6 mmol/L (3.5-5.1); Protein, Total 7.7 g/dL (5.8-8.1); Sodium 138 mmol/L (136-145)
[2021-06-14] MEDS: Aspirin 81 mg Enteric Coated Tablet PO SCH (08:10)
[2021-06-14] MEDS: Vitamin E 400 UNITS CAP PO SCH (08:10)
[2021-06-14] MEDS: Sodium Bicarbonate Tab 325 MG TAB PO SCH ×3 (08:10→21:32)
[2021-06-14] MEDS: Magnesium Oxide 400 MG TAB PO SCH ×2 (08:10→21:32)
[2021-06-14] MEDS: Ascorbic Acid 500 mg Chewable Tablet PO SCH (08:10)
[2021-06-14] MEDS: Famotidine 20 MG TAB PO SCH (08:11)
[2021-06-14] MEDS: Metoprolol Tartrate 25 MG TAB PO SCH ×2 (08:11→21:32)
[2021-06-14] MEDS: Dexamethasone 4 mg/ml Vial SLOW IVP SCH (08:11)
[2021-06-14] MEDS: Zinc Sulfate 220 MG CAP PO SCH (08:11)
[2021-06-14] MEDS: Ergocalciferol 1.25 MG(50,000 UNITS) CAP PO SCH (10:21)
[2021-06-14] MEDS ORDERED: Dextrose 5% in Water 1,000 ML IV PRN (13:04)
[2021-06-14] MEDS ORDERED: Dextrose 50% Abboject 50 ML SYRINGE SLOW IVP PRN (13:04)
[2021-06-14] MEDS: HumaLOG 300 UNITS/3 ML VIAL SC PRN ×2 (18:28→21:31)
[2021-06-14] MEDS: Enoxaparin Sodium 30 MG/0.3 ML SYRINGE SC SCH (21:30)
[2021-06-15 05:29] LABS: #Eosinphils 0.4 thou/uL (0.0-0.7); #Monocytes 1.3 thou/uL (0.11-0.59); #Neutrophils 15.5 thou/uL (1.40-6.50); %Eosinophils 2.1 % (0.0-10.0); %Lymphocytes 5.4 % (21.0-51.0); %Monocytes 7.4 % (0.0-10.0); %Neutrophils 85.1 % (42.0-75.0); Hemoglobin 13.2 g/dL (14.0-18.0); Mean Corpuscular HGB CONC 31.2 g/dL (32.0-36.0); Mean Corpuscular Volume 92.8 fL (78.0-98.0); Mean Platelet Volume 8.2 fL (7.4-10.4); Platelet Count 448 thou/uL (130-400); RBC Distribution Width 14.7 % (11.5-14.5); Red Blood Cell (RBC) Count 4.54 mill/uL (4.70-6.10); White Blood Cell (WBC) Count 18.2 thou/uL (4.8-10.8)
[2021-06-15 05:49] LABS: ALT (SGPT) 72 U/L (8-55); AST (SGOT) 21 U/L (5-34); Albumin 2.9 g/dL (3.4-4.8); Alkaline Phosphatase 97 U/L (40-110); Anion Gap 15 mmol/L (10-20); BUN (Urea Nitrogen) 74 mg/dL (8.4-25.7); Bilirubin, Total 0.4 mg/dL (0.2-1.2); CRP (Inflammatory) 5.77 mg/dL (= or < 0.5); Calc. Creatinine Clearance 26 mL/min (70-130); Calcium 8.5 mg/dL (7.8-10.44); Carbon Dioxide 23 mmol/L (23-31); Chloride 102 mmol/L (98-107); Globulin 3.9 g/dL (2.4-3.5); Glucose 119 mg/dL (83-110); Protein, Total 6.8 g/dL (5.8-8.1); Sodium 136 mmol/L (136-145)
[2021-06-15] MEDS: Famotidine 20 MG TAB PO SCH (09:32)
[2021-06-15] MEDS: Zinc Sulfate 220 MG CAP PO SCH (09:32)
[2021-06-15] MEDS: Aspirin 81 mg Enteric Coated Tablet PO SCH (09:32)
[2021-06-15] MEDS: Sodium Bicarbonate Tab 325 MG TAB PO SCH ×3 (09:32→20:38)
[2021-06-15] MEDS: Metoprolol Tartrate 25 MG TAB PO SCH ×2 (09:32→20:38)
[2021-06-15] MEDS: Magnesium Oxide 400 MG TAB PO SCH ×2 (09:32→20:38)
[2021-06-15] MEDS: Ascorbic Acid 500 mg Chewable Tablet PO SCH (09:32)
[2021-06-15] MEDS: Dexamethasone 4 mg/ml Vial SLOW IVP SCH (09:33)
[2021-06-15] MEDS: Vitamin E 400 UNITS CAP PO SCH (09:33)
[2021-06-15] MEDS: Enoxaparin Sodium 30 MG/0.3 ML SYRINGE SC SCH (20:38)
[2021-06-15] MEDS: HumaLOG 300 UNITS/3 ML VIAL SC PRN (20:39)
[2021-06-16 01:10] LABS: Bilirubin Negative (Negative); Blood, Urine 3+ (Negative); Clarity Clear (Clear); Glucose, Urine (Dipstick) 300 mg/dL (Negative); Ketone, Urine Negative (Negative); Leukocyte 250 Leu/uL (Negative); Nitrite Negative (Negative); Protein, Urine (Dipstick) 70 mg/dL (Neg-Trace); RBC/HPF 21-50 HPF (0-3); Specific Gravity, Urine 1.016 (1.002-1.036); Squamous Epithelial None Seen HPF (0-3); Urobilinogen Normal mg/dL (Less than 2); WBC/HPF 21-50 HPF (0-3); pH, Urine 6.5 (5.0-9.0)
[2021-06-16 01:33] LABS: Bacteria/HPF 2+ HPF (None Seen)
[2021-06-16 01:34] LABS: Urine Culture Reflex Yes Yes
[2021-06-16 05:22] LABS: #Eosinphils 0.3 thou/uL (0.0-0.7); #Lymphocytes 0.6 thou/uL (1.20-3.40); #Monocytes 1.3 thou/uL (0.11-0.59); #Neutrophils 14.1 thou/uL (1.40-6.50); %Basophils 0.1 % (0.0-1.0); %Eosinophils 2.1 % (0.0-10.0); %Lymphocytes 3.4 % (21.0-51.0); %Monocytes 7.9 % (0.0-10.0); %Neutrophils 86.5 % (42.0-75.0); Hemoglobin 12.5 g/dL (14.0-18.0); Mean Corpuscular HGB CONC 32.6 g/dL (32.0-36.0); Mean Corpuscular Hemoglobin 30.5 pg (27.0-31.0); Mean Corpuscular Volume 93.5 fL (78.0-98.0); Mean Platelet Volume 8.3 fL (7.4-10.4); Platelet Count 385 thou/uL (130-400); RBC Distribution Width 14.8 % (11.5-14.5); White Blood Cell (WBC) Count 16.3 thou/uL (4.8-10.8)
[2021-06-16 05:46] LABS: ALT (SGPT) 51 U/L (8-55); AST (SGOT) 14 U/L (5-34); Albumin 2.7 g/dL (3.4-4.8); Alkaline Phosphatase 88 U/L (40-110); Anion Gap 15 mmol/L (10-20); BUN (Urea Nitrogen) 71 mg/dL (8.4-25.7); Bilirubin, Total 0.3 mg/dL (0.2-1.2); Calc. Creatinine Clearance 25 mL/min (70-130); Calcium 8.2 mg/dL (7.8-10.44); Carbon Dioxide 24 mmol/L (23-31); Chloride 102 mmol/L (98-107); Globulin 3.8 g/dL (2.4-3.5); Glucose 132 mg/dL (83-110); Potassium 4.3 mmol/L (3.5-5.1); Protein, Total 6.5 g/dL (5.8-8.1); Sodium 137 mmol/L (136-145)
[2021-06-16] MEDS: Sodium Bicarbonate Tab 325 MG TAB PO SCH ×3 (09:58→20:20)
[2021-06-16] MEDS: Magnesium Oxide 400 MG TAB PO SCH ×2 (09:58→20:20)
[2021-06-16] MEDS: Metoprolol Tartrate 25 MG TAB PO SCH ×2 (09:58→20:20)
[2021-06-16] MEDS: Dexamethasone 4 mg/ml Vial SLOW IVP SCH (09:58)
[2021-06-16] MEDS: Famotidine 20 MG TAB PO SCH (09:59)
[2021-06-16] MEDS: Vitamin E 400 UNITS CAP PO SCH (09:59)
[2021-06-16] MEDS: Aspirin 81 mg Enteric Coated Tablet PO SCH (09:59)
[2021-06-16] MEDS: Zinc Sulfate 220 MG CAP PO SCH (09:59)
[2021-06-16] MEDS: Ascorbic Acid 500 mg Chewable Tablet PO SCH (10:02)
[2021-06-16] MEDS: HumaLOG 300 UNITS/3 ML VIAL SC PRN ×2 (13:27→20:20)
[2021-06-16] MEDS: Enoxaparin Sodium 30 MG/0.3 ML SYRINGE SC SCH (20:19)
[2021-06-17] MEDS ORDERED: Piperacillin/Tazobactam 3.375 GM in Sodium Chloride 0.9% 100 ML IVPB SCH ×2 (02:00→17:15)
[2021-06-17 04:35] LABS: #Eosinphils 0.5 thou/uL (0.0-0.7); #Lymphocytes 0.8 thou/uL (1.20-3.40); #Monocytes 1.2 thou/uL (0.11-0.59); #Neutrophils 14.3 thou/uL (1.40-6.50); %Eosinophils 2.9 % (0.0-10.0); %Lymphocytes 4.5 % (21.0-51.0); %Monocytes 7.4 % (0.0-10.0); %Neutrophils 85.2 % (42.0-75.0); Hemoglobin 12.4 g/dL (14.0-18.0); Mean Corpuscular HGB CONC 30.5 g/dL (32.0-36.0); Mean Corpuscular Hemoglobin 28.7 pg (27.0-31.0); Mean Corpuscular Volume 94.1 fL (78.0-98.0); Mean Platelet Volume 8.2 fL (7.4-10.4); Platelet Count 364 thou/uL (130-400); RBC Distribution Width 14.9 % (11.5-14.5); Red Blood Cell (RBC) Count 4.34 mill/uL (4.70-6.10); White Blood Cell (WBC) Count 16.7 thou/uL (4.8-10.8)
[2021-06-17 04:57] LABS: ALT (SGPT) 50 U/L (8-55); AST (SGOT) 18 U/L (5-34); Albumin 2.7 g/dL (3.4-4.8); Alkaline Phosphatase 85 U/L (40-110); Anion Gap 13 mmol/L (10-20); BUN (Urea Nitrogen) 78 mg/dL (8.4-25.7); Bilirubin, Total 0.4 mg/dL (0.2-1.2); Calc. Creatinine Clearance 24 mL/min (70-130); Calcium 8.6 mg/dL (7.8-10.44); Carbon Dioxide 26 mmol/L (23-31); Chloride 104 mmol/L (98-107); Glucose 116 mg/dL (83-110); Potassium 4.9 mmol/L (3.5-5.1); Protein, Total 6.7 g/dL (5.8-8.1); Sodium 138 mmol/L (136-145)
[2021-06-17] MEDS: Magnesium Oxide 400 MG TAB PO SCH ×2 (08:56→20:50)
[2021-06-17] MEDS: Famotidine 20 MG TAB PO SCH (08:56)
[2021-06-17] MEDS: Aspirin 81 mg Enteric Coated Tablet PO SCH (08:57)
[2021-06-17] MEDS: Dexamethasone 4 mg/ml Vial SLOW IVP SCH (08:57)
[2021-06-17] MEDS: Metoprolol Tartrate 25 MG TAB PO SCH ×2 (08:57→20:49)
[2021-06-17] MEDS: Ascorbic Acid 500 mg Chewable Tablet PO SCH (08:57)
[2021-06-17] MEDS: Zinc Sulfate 220 MG CAP PO SCH (08:57)
[2021-06-17] MEDS: Sodium Bicarbonate Tab 325 MG TAB PO SCH ×3 (08:57→20:50)
[2021-06-17] MEDS: Vitamin E 400 UNITS CAP PO SCH (09:08)
[2021-06-17] MEDS: HumaLOG 300 UNITS/3 ML VIAL SC PRN ×3 (12:04→20:52)
[2021-06-17 12:24] LABS: Hemoglobin A1c 6.9 % (4.0-6.0)
[2021-06-17] MEDS ORDERED: Piperacillin/Tazobactam 2.25 GM in Sodium Chloride 0.9% 100 ML IVPB SCH (18:00)
[2021-06-17] MEDS: Enoxaparin Sodium 30 MG/0.3 ML SYRINGE SC SCH (20:50)
[2021-06-17] MEDS: Piperacillin/Tazobactam 3.375 GM in Sodium Chloride 0.9% 100 ML IVPB SCH (21:19)
[2021-06-18] MEDS: Piperacillin/Tazobactam 3.375 GM in Sodium Chloride 0.9% 100 ML IVPB SCH ×3 (05:04→21:50)
[2021-06-18 05:48] LABS: #Eosinphils 0.8 thou/uL (0.0-0.7); #Lymphocytes 0.7 thou/uL (1.20-3.40); #Monocytes 1.1 thou/uL (0.11-0.59); #Neutrophils 12.8 thou/uL (1.40-6.50); %Basophils 0.2 % (0.0-1.0); %Eosinophils 4.9 % (0.0-10.0); %Lymphocytes 4.4 % (21.0-51.0); %Monocytes 7.2 % (0.0-10.0); %Neutrophils 83.3 % (42.0-75.0); Mean Corpuscular HGB CONC 32.6 g/dL (32.0-36.0); Mean Corpuscular Hemoglobin 30.8 pg (27.0-31.0); Mean Corpuscular Volume 94.5 fL (78.0-98.0); Mean Platelet Volume 8.1 fL (7.4-10.4); Platelet Count 408 thou/uL (130-400); RBC Distribution Width 15.1 % (11.5-14.5); Red Blood Cell (RBC) Count 4.21 mill/uL (4.70-6.10); White Blood Cell (WBC) Count 15.4 thou/uL (4.8-10.8)
[2021-06-18 06:05] LABS: ALT (SGPT) 49 U/L (8-55); AST (SGOT) 17 U/L (5-34); Albumin 2.7 g/dL (3.4-4.8); Alkaline Phosphatase 84 U/L (40-110); Anion Gap 13 mmol/L (10-20); BUN (Urea Nitrogen) 76 mg/dL (8.4-25.7); Bilirubin, Total 0.5 mg/dL (0.2-1.2); Calc. Creatinine Clearance 24 mL/min (70-130); Calcium 8.6 mg/dL (7.8-10.44); Carbon Dioxide 24 mmol/L (23-31); Chloride 103 mmol/L (98-107); Globulin 4.1 g/dL (2.4-3.5); Glucose 111 mg/dL (83-110); Potassium 5.1 mmol/L (3.5-5.1); Protein, Total 6.8 g/dL (5.8-8.1); Sodium 135 mmol/L (136-145)
[2021-06-18] MEDS: Ascorbic Acid 500 mg Chewable Tablet PO SCH (08:57)
[2021-06-18] MEDS: Sodium Bicarbonate Tab 325 MG TAB PO SCH ×3 (08:57→21:51)
[2021-06-18] MEDS: Zinc Sulfate 220 MG CAP PO SCH (08:57)
[2021-06-18] MEDS: Dexamethasone 4 MG TAB PO SCH (08:57)
[2021-06-18] MEDS: Aspirin 81 mg Enteric Coated Tablet PO SCH (08:57)
[2021-06-18] MEDS: Metoprolol Tartrate 25 MG TAB PO SCH ×2 (08:58→21:51)
[2021-06-18] MEDS: Vitamin E 400 UNITS CAP PO SCH (08:58)
[2021-06-18] MEDS: Famotidine 20 MG TAB PO SCH (08:58)
[2021-06-18] MEDS: Magnesium Oxide 400 MG TAB PO SCH ×2 (08:58→21:51)
[2021-06-18] MEDS: HumaLOG 300 UNITS/3 ML VIAL SC PRN ×2 (12:14→16:35)
[2021-06-18] MEDS: Enoxaparin Sodium 30 MG/0.3 ML SYRINGE SC SCH (21:50)
[2021-06-19 05:24] LABS: #Lymphocytes 0.7 thou/uL (1.20-3.40); #Monocytes 1.2 thou/uL (0.11-0.59); #Neutrophils 11.6 thou/uL (1.40-6.50); %Basophils 0.1 % (0.0-1.0); %Eosinophils 6.8 % (0.0-10.0); %Lymphocytes 4.7 % (21.0-51.0); %Monocytes 8.1 % (0.0-10.0); %Neutrophils 80.2 % (42.0-75.0); Hemoglobin 12.7 g/dL (14.0-18.0); Mean Corpuscular HGB CONC 31.9 g/dL (32.0-36.0); Mean Platelet Volume 7.7 fL (7.4-10.4); Platelet Count 403 thou/uL (130-400); RBC Distribution Width 14.9 % (11.5-14.5); Red Blood Cell (RBC) Count 4.23 mill/uL (4.70-6.10); White Blood Cell (WBC) Count 14.4 thou/uL (4.8-10.8)
[2021-06-19] MEDS: Piperacillin/Tazobactam 3.375 GM in Sodium Chloride 0.9% 100 ML IVPB SCH (05:38)
[2021-06-19 05:50] LABS: ALT (SGPT) 53 U/L (8-55); AST (SGOT) 20 U/L (5-34); Albumin 2.8 g/dL (3.4-4.8); Alkaline Phosphatase 83 U/L (40-110); Anion Gap 13 mmol/L (10-20); BUN (Urea Nitrogen) 71 mg/dL (8.4-25.7); Bilirubin, Total 0.4 mg/dL (0.2-1.2); Calc. Creatinine Clearance 24 mL/min (70-130); Calcium 8.5 mg/dL (7.8-10.44); Carbon Dioxide 22 mmol/L (23-31); Chloride 104 mmol/L (98-107); Globulin 3.9 g/dL (2.4-3.5); Glucose 114 mg/dL (83-110); Protein, Total 6.7 g/dL (5.8-8.1); Sodium 134 mmol/L (136-145)
[2021-06-19] MEDS: Dexamethasone 4 MG TAB PO SCH (09:11)
[2021-06-19] MEDS: Ascorbic Acid 500 mg Chewable Tablet PO SCH (09:11)
[2021-06-19] MEDS: Aspirin 81 mg Enteric Coated Tablet PO SCH (09:11)
[2021-06-19] MEDS: Famotidine 20 MG TAB PO SCH (09:13)
[2021-06-19] MEDS: Magnesium Oxide 400 MG TAB PO SCH (09:13)
[2021-06-19] MEDS: Vitamin E 400 UNITS CAP PO SCH (09:13)
[2021-06-19] MEDS: Zinc Sulfate 220 MG CAP PO SCH (09:13)
[2021-06-19] MEDS: Metoprolol Tartrate 25 MG TAB PO SCH (09:13)
[2021-06-19] MEDS: Sodium Bicarbonate Tab 325 MG TAB PO SCH (09:13)
[2021-06-19] MEDS: HumaLOG 300 UNITS/3 ML VIAL SC PRN (12:55)
[2021-06-19 14:52] VITALS: BP 126/72; TEMP 97.6
== END 2021-06-19 14:53 | DRG 871 ==
LOC: ERS 04:51 → ERHOLD 06:55 → 2SW 20:12
PROVIDERS: ADMIT Internal Medicine; ATTEND Hospitalist
PROC: 8E0ZXY6 Isolation (ICD-10-PCS; principal; 2021-05-29)
PROC: 5A0945A Assistance with Respiratory Ventilation, 24-96 Consecutive Hours, High Flow/Velocity Cannula (ICD-10-PCS; 2021-06-01)
PROC: 5A0955A Assistance with Respiratory Ventilation, Greater than 96 Consecutive Hours, High Flow/Velocity Cannula (ICD-10-PCS; 2021-06-06)
DX: A41.89 Other specified sepsis (principal); U07.1 COVID-19; J12.82 Pneumonia due to coronavirus disease 2019; J96.01 Acute respiratory failure with hypoxia; N18.6 End stage renal disease; N39.0 Urinary tract infection, site not specified; N17.9 Acute kidney failure, unspecified; E87.1 Hypo-osmolality and hyponatremia; N13.8 Other obstructive and reflux uropathy; M62.82 Rhabdomyolysis; I13.11 Hypertensive heart and chronic kidney disease without heart failure, with stage 5 chronic kidney disease, or end stage renal disease; I47.2 Ventricular tachycardia; I47.1 Supraventricular tachycardia; Z16.23 Resistance to quinolones and fluoroquinolones; E87.2 Acidosis; R65.20 Severe sepsis without septic shock; B96.5 Pseudomonas (aeruginosa) (mallei) (pseudomallei) as the cause of diseases classified elsewhere; F17.210 Nicotine dependence, cigarettes, uncomplicated; E86.0 Dehydration; E79.0 Hyperuricemia without signs of inflammatory arthritis and tophaceous disease; E55.9 Vitamin D deficiency, unspecified; E87.5 Hyperkalemia; N40.1 Benign prostatic hyperplasia with lower urinary tract symptoms; D63.1 Anemia in chronic kidney disease; E86.9 Volume depletion, unspecified; E87.6 Hypokalemia; I49.3 Ventricular premature depolarization; R00.1 Bradycardia, unspecified; R73.9 Hyperglycemia, unspecified; E87.70 Fluid overload, unspecified; Z98.890 Other specified postprocedural states; Z79.899 Other long term (current) drug therapy; Z82.49 Family history of ischemic heart disease and other diseases of the circulatory system; Z83.3 Family history of diabetes mellitus
CPT/HCPCS: 0240U; 36415; 36416; 36600; 71045; 76770; 80048; 80053; 80069; 81001; 82306; 82550; 82728; 82805; 83036; 83735; 83880; 84100; 84145; 84156; 84300; 84484; 84540; 85025; 85379; 86140; 87077; 87086; 87186; 93005; 93010; 96374; J0692; J1100; J1644; J1650; J1940; J2543; J3475; J3490; J7070; J8540